=== PATIENT | female | born 1930 | race Caucasian/White ===

== ENCOUNTER 2017-01-29 16:16 | Inpatient (IN) | payer MEDICARE, BC ==
[~2017-01-29] VITALS: Ht 154.9 cm; Wt 60.8 kg
[2017-01-29] MEDS ORDERED: SOD CHLORIDE 0.9% 1,000 ML IV STA (16:58)
[2017-01-29] MEDS ORDERED: ONDANSETRON 4 MG INJ IV STA (16:58)
--- NOTE | 2017-01-29 17:33 | ERA ---
ER Documentation Chief Complaint Date/Time DATE: 01/29/17 TIME: 17:25 Chief Complaint ABDOMINAL 8/10 PAIN HPI 86-year-old woman brought in by EMS for lower abdominal pain and cramping 1 day , pain has been severe nonradiating and nonexertional. She was diagnosed with urinary tract infection about 2 days ago and has been using ciprofloxacin therapy for 2 days. She has had some loose stools, no vomiting, no chest pain or shortness of breath, no fevers or chills. Patient continues to have urinary frequency and dysuria. ROS All systems reviewed and are negative except as per history of present illness. Medications Home Meds Reported Medications Tuberculin,Purif.prot.deriv. (Tubersol) 5 Tub Unit/0.1 Ml Vial, 5 TUB ID QHS, VIAL 01/29/17 Spironolactone* (Aldactone*) 25 Mg Tablet, 25 MG GTB DAILY, #30 TAB 01/29/17 Protein Supplement (Promod) 946 Ml Liquid, 30 ML GTB DAILY 01/29/17 Ondansetron Hcl* (Ondansetron Hcl*) 4 Mg Tablet, 4 MG GTB Q6H, TAB 01/29/17 Hydrocodone/Acetaminophen ([place] 5-325 Tablet) 1 Each Tablet, 1 EACH GTB Q4H Y for PRN, TAB 01/29/17 Multivitamin with Minerals (Multivitamins with Minerals) 1 Each Tablet, 1 EACH GTB DAILY, TAB 01/29/17 Lisinopril* (Lisinopril*) 5 Mg Tablet, 5 MG GTB DAILY, #30 TAB HOLD IF SBP<110 OR HR<60 01/29/17 Furosemide* (Furosemide*) 40 Mg Tablet, 40 MG GTB DAILY, TAB HOLD IF SBP<110 01/29/17 Famotidine* (Famotidine*) 20 Mg Tablet, 20 MG GTB DAILY, #30 TAB 01/29/17 Apixaban* (Eliquis*) 5 Mg Tablet, 5 MG GTB BID, TAB 01/29/17 Ipratropium-Albuterol (Ipratropium-Albuterol) 0.5-3 Mg/3 Ml Ampul.neb, 3 ML INHALATION Q2H, #30 VIAL 01/29/17 Cefepime Hcl/Ivpb* (Cefepime- 1 Gm/50 Ml*) 1 Gm/50 Ml Piggyback, 1 GM IVPB Q12, EA 01/29/17 Carvedilol* (Carvedilol*) 12.5 Mg Tablet, 12.5 MG GTB BID, #60 TAB HOLD IF SBP<110 OR HR<60 01/29/17 Calcium Carbonate-Vitamin D3 (Calcium 500 + D Tablet) 1 Each Tablet, 1 TAB GTB DAILY, TAB 01/29/17 Ascorbic Acid (Vitamin C) 500 Mg Tab, 500 MG GTB DAILY, TAB 01/29/17 Acetaminophen* (Acetaminophen*) 650 Mg Tablet, 650 MG GTB Q4H Y for PAIN LEVEL 1 -310, #30 TAB FEVER>101.1F 01/29/17 Allergies Allergies: Coded Allergies: No Known Allergy (Unverified , 01/29/17) PMhx/Soc Acute respiratory failure with tracheostomy, diabetes mellitus, spinal stenosis , hypertension, atrial fibrillation, previous left lower extremity DVT, 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, 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, hyperlipidemia, previous gastrostomy, anemia Anesthesia Reaction: No Hx Neurological Disorder: No Hx Psychiatric Problems: No Hx Alcohol Use: No Hx Substance Use: No Hx Tobacco Use: No Smoking Status: Unknown if ever smoked FmHx Family History: No diabetes Physical Exam Vitals Vital Signs Date Time Temp Pulse Resp B/P Pulse Ox O2 Delivery O2 Flow Rate FiO2 01/29/17 16:45 98.4 87 20 123/53 100 Physical Exam GENERAL: Elderly, chronically debilitated woman, appears nontoxic, afebrile, tracheostomy in place HEENT: Tracheostomy in place, skin appears clean and dry around the tracheostomy no cervical spine tenderness or step-off deformities, no goiter, no jaundice NEURO: Alert and oriented 1, patient has difficulty speaking because of the tracheostomy, eyes open, pupils equal round reactive to light, bilateral lower extremity paresis, moving upper extremities without difficulty CARDIAC: Regular rate and rhythm, no murmurs rubs or gallops LUNGS: Clear bilaterally no wheezing crackles or stridor ABDOMEN: Soft soft abdomen, diffuse mild tenderness to the lower quadrants without rigidity or guarding SKIN: Warm and dry to touch, no abrasions, contusions, or hematomas, no lacerations, no ecchymosis, no target lesions, and without ulcers EXTREMITIES: No clubbing cyanosis or edema, calves are bilaterally symmetrical, no Homans sign, no popliteal cord sign. Distal pulses equal and bilateral PSYCH: Unable to assess Result Diagram: 01/29/17 1715 01/29/17 1715 Results 24 hrs Laboratory Tests Test 01/29/17 17:15 01/29/17 17:48 White Blood Count 13.510^3/ul Red Blood Count 3.1610^6/ul Hemoglobin 10.0g/dl Hematocrit 31.9% Mean Corpuscular Volume 100.9fl Mean Corpuscular Hemoglobin 31.6pg Mean Corpuscular Hemoglobin Concent 31.3g/dl Red Cell Distribution Width 15.9% Platelet Count 10170^3/UL Mean Platelet Volume 10.1fl Neutrophils % 69.0% Band Neutrophils % 7.0% Lymphocytes % 11.0% Monocytes % 13.0% Eosinophils % % Neutrophils # 9.310^3/ul Lymphocytes # 1.510^3/ul Monocytes # 1.810^3/ul Eosinophils # 10^3/ul Sodium Level 137mmol/L Potassium Level 4.2mmol/L Chloride Level 90mmol/L Carbon Dioxide Level 37mmol/L Anion Gap 14 Blood Urea Nitrogen 46mg/dl Creatinine 0.83mg/dl Glucose Level 113mg/dl Calcium Level 9.9mg/dl Total Bilirubin 0.1mg/dl Direct Bilirubin 0.00mg/dl Indirect Bilirubin 0.1mg/dl Aspartate Amino Transf (AST/SGOT) 27IU/L Alanine Aminotransferase (ALT/SGPT) 41IU/L Alkaline Phosphatase 89IU/L Troponin I 0.041ng/ml Total Protein 7.8g/dl Albumin 3.2g/dl Globulin 4.60g/dl Albumin/Globulin Ratio 0.69 Lipase 51U/L Urine Color LT. YELLOW Urine Clarity CLEAR Urine pH 6.0 Urine Specific [place] 1.010 Urine Ketones NEGATIVE Urine Nitrite NEGATIVE Urine Bilirubin NEGATIVE Urine Urobilinogen 0.2 E.U./dL Urine Leukocyte Esterase 1+ Urine Microscopic RBC NONE SEEN/HPF Urine Microscopic WBC 25-50/HPF Urine Squamous Epithelial Cells FEW Urine Bacteria MODERATE Urine Hemoglobin NEGATIVE Urine Glucose NEGATIVE% Urine Total Protein NEGATIVE Current Medications Medications (Trade) Dose Ordered Sig/Rojas Route PRN Reason Start Time Stop Time Status Last Admin Dose Admin Sodium Chloride (NS) 1,000 ml @ 1,000 mls/hr Q1H STAT IV 01/29/17 16:58 01/29/17 17:57 DC 01/29/17 17:51 Ondansetron HCl 4 mg 4 mg ONCE STAT IV 01/29/17 16:58 01/29/17 17:00 DC 01/29/17 17:52 Sodium Chloride (NS) 1,000 ml @ 1,000 mls/hr Q1H ONCE IV 01/29/17 18:30 01/29/17 19:29 Procedures/[facility] IV line was established patient was placed on snaker driving horses rhythm strip revealed a sinus rhythm at about 80 bpm with upright P and T waves. Patient was afebrile. EKG performed, read by me revealed a normal sinus rhythm at 85 bpm, left axis deviation, narrow QRS complex, no concerning ST elevations or depressions noted , Q waves in inferior leads consistent with previous CT. I administered 2 L normal saline intravenously for dehydration and Zofran 4 mg IV for nausea. CBC revealed a leukocytosis of 14, electrolytes revealed dehydration with a BUN/ creatinine of 46/0.8, liver function tests are normal, troponin was negative. Urinalysis reveals a UTI with elevated urine WBCs and leukocytes. I treated her here with ceftriaxone 1 g IV. One AP view of the chest performed, read by me reveals no acute infiltrates, normal mediastinum, sharp costophrenic and cardiac borders, no air under the diaphragm. Otherwise unremarkable chest x-ray. CT scan of the abdomen and pelvis is also been ordered results are pending I will follow-up. Patient will be admitted to telemetry setting for continued medical management and IV hydration, and antibiotic therapy. Departure Diagnosis: Primary Impression: Acute encephalopathy Additional Impressions: Dehydration UTI (urinary tract infection) Qualified Code: N30.00 - Acute cystitis without hematuria Tracheostomy care Condition: ERIK Guzmán MD January 29, 2017 17:32
[2017-01-29 17:34] LABS: ADD SCAN DIFF NO
[2017-01-29 17:36] LABS: HEMATOCRIT 31.9 % (37.0-47.0); MEAN CORPUSCULAR HEMOGLOBIN 31.6 pg (29.0-33.0); MEAN CORPUSCULAR HGB CONC 31.3 g/dl (32.0-37.0); MEAN CORPUSCULAR VOLUME 100.9 fl (82.0-101.0); MEAN PLATELET VOLUME 10.1 fl (7.4-10.4); PLATELET COUNT 308 10^3/UL (140-415); RED BLOOD COUNT 3.16 10^6/ul (4.20-5.40); RED CELL DISTRIBUTION WIDTH 15.9 % (11.5-14.5); WHITE BLOOD COUNT 13.5 10^3/ul (4.8-10.8)
[2017-01-29 17:49] LABS: ALBUMIN 3.2 g/dl (3.3-4.9)
[2017-01-29 17:50] LABS: POTASSIUM 4.2 mmol/L (3.5-5.1)
[2017-01-29 17:52] LABS: BILIRUBIN,INDIRECT 0.1 mg/dl (0-1.1); BILIRUBIN,TOTAL 0.1 mg/dl (0.2-1.3); CREATININE 0.83 mg/dl (0.44-1.00)
[2017-01-29] MEDS ORDERED: ASC500 GTB (17:52)
[2017-01-29] MEDS ORDERED: ACET-2047 GTB (17:52)
[2017-01-29 17:53] LABS: ALBUMIN/GLOBULIN RATIO 0.69; CALCIUM 9.9 mg/dl (8.4-10.2); TOTAL PROTEIN 7.8 g/dl (6.1-8.1)
[2017-01-29] MEDS ORDERED: CALC-84 GTB (17:54)
[2017-01-29] MEDS ORDERED: CARV12.579 GTB (17:55)
[2017-01-29] MEDS ORDERED: CEFE1PIG IVPB (17:56)
[2017-01-29] MEDS ORDERED: IPRA3AMP INHALATION (17:57)
[2017-01-29] MEDS ORDERED: APIX5TAB GTB (17:57)
[2017-01-29] MEDS ORDERED: FAMO20TA18 GTB (17:58)
[2017-01-29] MEDS ORDERED: FURO40TA4 GTB (17:59)
[2017-01-29] MEDS ORDERED: LISI-313 GTB (18:00)
[2017-01-29] MEDS ORDERED: MULT-105 GTB (18:01)
[2017-01-29] MEDS ORDERED: HYDR-906 GTB (18:02)
[2017-01-29] MEDS ORDERED: ONDA4TAB95 GTB (18:02)
--- NOTE | 2017-01-29 18:02 | RADRPT ---
PROCEDURE: XR Chest. CLINICAL INDICATION: Chest pain. Abdominal pain TECHNIQUE: Portable AP semi erect view of the chest was obtained. COMPARISON: 01/09/2017 FINDINGS: The cardiomediastinal silhouette is within normal limits. Tracheostomy is again noted unchanged in satisfactory position. Aeration of the left lower lobe has improved but left lower lobe subsegmenta l atelectasis persists. The right lung remains clear. There is no evidence for pleural effusion, p neumothorax or pulmonary vascular congestion. Demineralization is again noted. Metallic left proxi mal humeral prosthesis is again seen and normal in position. Postoperative fusion hardware of the v isualized lumbar spine is again identified. Calcification of the aorta is present. No free air seen below the diaphragm. RPTAT:HJJR IMPRESSION: 1. Improved aeration of the left lower lobe compared to 01/09/2017 with some residual left basilar subsegmental atelectasis or scarring. 2. Tracheostomy again noted in satisfactory position. 3. Aortic atherosclerosis is present. Physician Barb Date Time Electronically viewed and signed by Physician Barb on 01/29/2017 18:01 JR/
[2017-01-29 18:03] LABS: ADD UMIC YES; URINE BILIRUBIN (Dip) NEGATIVE (NEGATIVE); URINE BLOOD (Dip) NEGATIVE (NEGATIVE); URINE COLOR LT. YELLOW (YELLOW); URINE GLUCOSE (Dip) NEGATIVE (NEGATIVE); URINE KETONES (Dip) NEGATIVE (NEGATIVE); URINE LEUKOCYTE ESTERASE (Dip) 1+ (NEGATIVE); URINE NITRITE (Dip) NEGATIVE (NEGATIVE); URINE TOTAL PROTEIN (Dip) NEGATIVE (NEGATIVE); URINE UROBILINOGEN (Dip) 0.2 E.U./dL (0.1-1.0)
[2017-01-29] MEDS ORDERED: PROT946L GTB (18:03)
[2017-01-29 18:04] LABS: TROPONIN-I 0.041 ng/ml (0.00-0.12)
[2017-01-29] MEDS ORDERED: SPIR25TA GTB (18:04)
[2017-01-29] MEDS ORDERED: TUBE5VIA3 ID (18:05)
[2017-01-29 18:23] LABS: BACTERIA,URINE MODERATE; SQUAMOUS EPITHELIAL CELL,UR FEW; URINE RBCS NONE SEEN /HPF (0)
[2017-01-29 18:27] LABS: LYMPHOCYTES # 1.5 10^3/ul (0.8-2.9); MONOCYTE # 1.8 10^3/ul (0.3-0.9); NEUTROPHIL # 9.3 10^3/ul (1.6-7.5)
[2017-01-29] MEDS ORDERED: SOD CHLORIDE 0.9% 1,000 ML IV ONE (18:30)
[2017-01-29] MEDS ORDERED: CEFTRIAXONE 1 GM/50 ML (PMX) 50 ML IVPB ONE (19:00)
--- NOTE | 2017-01-29 19:36 | RADRPT ---
PROCEDURE: CT abdomen and pelvis without contrast. Site of service: emergency room. CLINICAL INDICATION: Periumbilical abdominal pain TECHNIQUE: CT scan of the abdomen and pelvis without contrast was performed on the CT scanner. Th e patient was scanned without intravenous contrast. Oral contrast was administered. 3-D post proce ssing coronal and sagittal re-formations were obtained from the axial source images. Exam D L P [address] D V O L 23 mgy. This exam is limited due to lack of intravenous contrast. One or more of the following dose reduction techniques were used: Automated exposure control Adjustment of the mA and/or kV according to patient size. Use of iterative reconstruction technique. COMPARISON: None FINDINGS: CT abdomen: The lung bases are clear. The heart size is normal, without pericardial thickening or effusion. The liver is normal in size and density without focal mass or intrahepatic biliary dilatation. The spleen is normal in size and homogeneous in density. The stomach is partially collapsed, but is peggy ssly unremarkable. A gastrostomy tube is present. The pancreas as visualized is normal. The gallbla dder and biliary tree are unremarkable and there is no evidence for biliary dilatation. The adrenal glands are symmetric and normal. The kidneys are symmetrically unremarkable as well. N o renal calculus or obstructive uropathy or suspicious, mass lesion is seen. The aorta is of normal caliber. There is no retroperitoneal lymphadenopathy. The allie hepatis vidal on is clear. The bowel and mesentery, as visualized, are equally unremarkable. CT pelvis: The small bowel loops situated within the pelvis are unremarkable. The appendix is not visualized. Involving the sigmoid colon diffusely, there is moderate, circumferential bowel wall thickening with inflammatory changes suggesting acute, moderate, uncomplicated diverticulitis. No free air, free f luid, abscess or findings of bowel obstruction. Underlying neoplasm is not completely excluded. GI follow-up is suggested. The pelvic organs are normal. The pelvic sidewalls and inguinal regions are clear. Fusion hardware is present within the lumbar spine, as well as bilateral hip arthroplasties. No ost eolytic or osteoblastic lesion is detected. IMPRESSION: 1. Diffuse, moderate, bowel wall thickening of the sigmoid colon suggesting uncomplicated, moderate diverticulitis. Underlying neoplasm is not excluded; GI follow-up is suggested. No findings of fr ee air, free fluid, abscess, bowel obstruction, or acute perforation. 2. G tube in place. Status post lumbar fusion with bilateral hip arthroplasties. RPTAT: QQ .Imelda Jules MD, Date Time Electronically viewed and signed by .Imelda Jules MD, on 01/29/2017 19:36 .F/
[2017-01-29] MEDS ORDERED: metroNIDAZOLE 500 MG/NS (PMX) 100 ML IVPB ONE (20:00)
[2017-01-29] MEDS ORDERED: NACL 0.9% 3 ML SYG IV SCH (20:30)
[2017-01-29] MEDS: FAMOTIDINE 20 MG INJ IV SCH (21:19)
[2017-01-29 22:30] VITALS: TEMP 97.4
[2017-01-30] VITALS (15 sets, daily range): BP systolic 102–161; BP diastolic 43–66; PULSE 74–80; RESP 16–28; Ht 154.9 cm; Wt 60.8 kg
[2017-01-30 05:40] LABS: ADD SCAN DIFF NO
[2017-01-30 05:41] LABS: BASOPHILS % 0.2 % (0.0-2.0); HEMATOCRIT 29.7 % (37.0-47.0); HEMOGLOBIN 9.3 g/dl (12.0-16.0); LYMPHOCYTES # 1.5 10^3/ul (0.8-2.9); LYMPHOCYTES % 12.6 % (15.0-51.0); MEAN CORPUSCULAR HEMOGLOBIN 31.8 pg (29.0-33.0); MEAN CORPUSCULAR HGB CONC 31.3 g/dl (32.0-37.0); MEAN CORPUSCULAR VOLUME 101.7 fl (82.0-101.0); MONOCYTE # 1.2 10^3/ul (0.3-0.9); NEUTROPHIL # 9.1 10^3/ul (1.6-7.5); NEUTROPHILS % 76.8 % (39.0-77.0); PLATELET COUNT 282 10^3/UL (140-415); RED BLOOD COUNT 2.92 10^6/ul (4.20-5.40); RED CELL DISTRIBUTION WIDTH 15.9 % (11.5-14.5); WHITE BLOOD COUNT 11.8 10^3/ul (4.8-10.8)
[2017-01-30 06:08] LABS: ALBUMIN 2.9 g/dl (3.3-4.9); ALBUMIN/GLOBULIN RATIO 0.74; CALCIUM 9.4 mg/dl (8.4-10.2); CREATININE 0.7 mg/dl (0.44-1.00); POTASSIUM 4.5 mmol/L (3.5-5.1); TOTAL PROTEIN 6.8 g/dl (6.1-8.1)
[2017-01-30] MEDS: ALBUTEROL/IPRATROPIUM (NEB) 3 ML AMP HHN PRN ×3 (08:15→23:51)
[2017-01-30] MEDS: FAMOTIDINE 20 MG INJ IV SCH (08:51)
[2017-01-30] MEDS: CEFTRIAXONE 1 GM/50 ML (PMX) 50 ML IVPB SCH (08:51)
[2017-01-30] MEDS: ENOXAPARIN 30 MG/0.3 ML SYG SC SCH (09:22)
[2017-01-30] MEDS: ACETAMINOPHEN 325 MG TAB PO PRN (11:50)
[2017-01-30] MEDS: metroNIDAZOLE 500 MG/NS (PMX) 100 ML IVPB SCH ×2 (15:10→21:14)
--- NOTE | 2017-01-30 16:13 | HP ---
DATE OF ADMISSION: 01/29/2017 CHIEF COMPLAINT: Abdominal pain 04/27. HISTORY OF PRESENT ILLNESS: The patient is an 86-year-old female with history of acute respiratory failure with tracheostomy, diabetes mellitus, spinal stenosis, hypertension, atrial fibrillation, h istory of left lower extremity deep venous thrombosis and history of Guillian-Wheelwright, hyperlipidemia, and dysphagia with gastrostomy and anemia. The patient was recuperating at [facility]. The patient developed abdominal pain and cramping for 1 day. The patient was diagnosed with uri nary tract infection a couple of days ago and was given ciprofloxacin. The patient also developed d iarrhea. Patient denies any nausea, vomiting. Patient underwent a CT of the abdomen and pelvis in the emergency room which revealed diffuse moderate bowel wall thickening of the sigmoid colon, sugge stive of uncomplicated moderate diverticulitis underlying neoplasm is not excluded. GI followup is s uggested. No findings of free air, free fluid, abscess, bowel obstruction, acute perforation. G-tu be is placed, status post lumbar fusion with bilateral hip arthroplasties. The patient's urinalysis was positive for leukocyte esterase and the patient was also noted to have leukocytosis with white blood cells being elevated to 13,500. The patient was diagnosed with acute urinary tract infection, was started on broad spectrum antibiotics after urine culture was collected and given IV fluids and patient was admitted for further evaluation and management. PAST MEDICAL HISTORY: Per HPI. The patient is not able to provide any medical history. Most of th e medical history was obtained from talking to patient's daughter and from medical records. PAST SURGICAL HISTORY: Patient is status post lumbar surgery, bilateral hip arthroplasty and recent right lower extremity surgery, status post tracheostomy and status post G-tube placement. FAMILY HISTORY: Noncontributory. SOCIAL HISTORY: [facility]. Denies any tobacco use, denie s any alcohol use, denies any illicit drug use. ALLERGIES: NO KNOWN ALLERGIES. MEDICATIONS ON ADMISSION: 1. Tubersol. 2. Aldactone. 3. ProMod. 4. Zofran. 5. Randolph. 6. Multivitamins 7. Lisinopril. 8. Lasix. 9. Pepcid. 10. Eliquis. 11. DuoNeb. 12. Coreg. 13. Vitamin D with calcium carbonate. 14. Vitamin C. 15. Tylenol. 16. Cefepime. REVIEW OF SYSTEMS: A 12-point review of systems is negative unless what mentioned in the HPI. PHYSICAL ASSESSMENT: GENERAL: Well-developed, well-nourished female currently is awake, alert to name, nonverbal. VITAL SIGNS: Temperature is 98.4, pulse 77, blood pressure is 120/50, respiratory rate is 24, oxyge n saturation 99% on cool aerosol mist through a trach collar. HEENT: Head is atraumatic, normocephalic. Pupils equal and reactive to light and accommodation. O ral mucosa is pink and moist. NECK: Supple. There is a tracheostomy at the base of the neck with no bleeding. LUNGS: Slightly diminished at the bases. There is no rhonchi, wheezes, rales noted. CARDIOVASCULAR: Normal S1, S2. No murmurs, gallops, clicks, rubs noted. ABDOMEN: Round, soft, nondistended. The patient has mild tenderness at the lower quadrants. G-tub e with intact stoma. Bowel sounds hypoactive. EXTREMITIES: No edema, clubbing, cyanosis. SKIN: There is no rash, petechiae noted. PSYCHOLOGICAL: The patient is awake, alert, nonverbal. The patient is bedridden. ASSESSMENT AND PLAN: 1. Urinary tract infection. Continue broad spectrum antibiotics. Follow up on final cultures. 2. Abdominal pain. I am going to ask Dr. Shelby to evaluate the patient in gastroenterology [facility]. 3. Moderate diverticulitis per CT. Continue antibiotics and IV fluids. 4. 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 5. Hypertension. 6. History of atrial fibrillation and left lower extremity deep venous thrombosis. Continue Eliqui s. 7. Dysphagia with G-tube. 8. History of acute respiratory failure with tracheostomy. 9. History of Guillian-Wheelwright. 10. Status post right lower extremity ortho surgery details are not available. Resume patient's home medications. We will obtain lactic acid and blood culture. Continue Protonix for peptic ulcer disease prophylaxis. Further recommendations based on clinical course. Plan of c are discussed with Dr. Murillo. Dictated By: IGNACIO ARROYO INTEGRATION ENGINEER for GUERO MURILLO MD SR/NTS Conf#: [id number] [facility]#: [id number]
[2017-01-30] MEDS ORDERED: VANCOMYCIN IV PER PHARMACY XX SCH (16:30)
[2017-01-30] MEDS ORDERED: VANCOMYCIN 1.25 GM in SOD CHLORIDE 0.9% 250 ML IVPB SCH (18:00)
--- NOTE | 2017-01-30 21:11 | CONS ---
DATE OF ADMISSION: 01/29/2017 DATE OF CONSULTATION: 01/30/2017 TYPE OF CONSULTATION: Infectious Disease. REASON FOR CONSULTATION: Antibiotic management. HISTORY OF PRESENT ILLNESS: Darshana Nicholson is an 86-year-old unfortunate female who was brought in by EMS for lower abdominal pain and cramping. The patient was diagnosed with urinary tract infecti on about 2 days prior to her admission on the and was placed on ciprofloxacin for 2 days. She has had some loose stools, no vomiting, but has urinary frequency and dysuria. Her past problems include: 1. COPD with acute respiratory failure, status post tracheostomy. 2. Dysphagia with previous gastrostomy tube. 3. Adult-onset diabetes mellitus. 4. Spinal stenosis. 5. Hypertension. 6. Atrial fibrillation. 7. Previous left lower extremity DVT. 8. 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 9. Hyperlipidemia. 10. Anemia of chronic disease. On admission, her white count was 13.5, H and H of 10 and 31.9, platelet count of 308,000. BUN and creatinine 46 over 0.83. PAST MEDICAL HISTORY: Operations as outlined. FAMILY HISTORY: Noncontributory. SOCIAL HISTORY: She does not smoke, drink or abuse drugs. ALLERGIES: NONE TO PENICILLIN, SULFA OR FOODS. MEDICATIONS: Per chart. REVIEW OF SYSTEMS: As per HPI. PHYSICAL EXAMINATION: GENERAL: The patient is an elderly, chronically debilitated female who is afebrile, in no acute dis tress. SKIN: Without generalized rash. HEENT: She has a tracheostomy in place which is clean and dry. Otherwise within normal limits. LYMPH NODES: None palpable. CHEST: Decreased breath sounds at the bases. HEART: Without murmur or gallop. ABDOMEN: Soft, nontender without organosplenomegaly or masses. EXTREMITIES: Without cyanosis, clubbing or edema. RECTAL AND GENITAL: Deferred. NEUROLOGIC: The patient has difficulty speaking secondary to tracheostomy. She has bilateral lower extremity paresis. She moves her upper extremities. As noted, her white count was 13.5. Chest x-ray shows improved aeration of the left lobe compared t o 01/09/2017, tracheostomy in place. A CT scan of the abdomen and pelvis was done which showed diff use moderate bowel wall thickening of the sigmoid colon suggesting uncomplicated moderate diverticul itis. Underlying neoplasm is not excluded. GI followup suggested. No findings of free air, free f luid, abscess, bowel obstruction or acute perforation. A G-tube is in place. Status post lumbar fu ashley with bilateral hip arthroplasties. The patient has gram-positive rods in her blood which are m ost likely contaminant corynebacterium. She has enterococcus in her urine. She had blood cultures done. She was started on ceftriaxone and metronidazole. The patient has gram-positive rods in her blood which are probably contaminant. I am going to repeat 2 sets of blood cultures. I'm going to get a C. difficile, discontinue the ceftriaxone which does not work on enterococcus, start her on va ncomycin per pharmacy. I will dictate my findings to the hospitalists. Dictated By: IZABEL OCONNELL MD, JD/EAN Conf#: [id number] DID#: [id number]
[2017-01-31] VITALS (13 sets, daily range): BP systolic 115–142; BP diastolic 56–65; PULSE 74–90; RESP 16–18
[2017-01-31] MEDS: metroNIDAZOLE 500 MG/NS (PMX) 100 ML IVPB SCH ×3 (06:00→22:17)
[2017-01-31] MEDS: CEFTRIAXONE 1 GM/50 ML (PMX) 50 ML IVPB SCH (08:22)
[2017-01-31] MEDS: FAMOTIDINE 20 MG INJ IV SCH (08:22)
[2017-01-31] MEDS: ENOXAPARIN 30 MG/0.3 ML SYG SC SCH (08:38)
--- NOTE | 2017-01-31 12:39 | CONS ---
Date/Time of Note Date/Time of Note DATE: 01/31/17 TIME: 12:39 Consultation Date/Type/Reason Admit Date/Time January 29, 2017 at 18:29 Date of Consultation: January 31, 2017 Type of Consultation: Pulmonary Reason for Consultation Consultation dictated number is [id number] Social History Smoking Status: Never smoker Exam/Review of Systems Vital Signs Vitals Vital Signs Date Time Temp Pulse Resp B/P Pulse Ox O2 Delivery O2 Flow Rate FiO2 01/31/17 11:15 98.2 74 18 142/65 96 01/31/17 09:40 Aerosol 5.0 28 Aerosol Mask T Tube Intake and Output 01/30/17 01/30/17 01/31/17 15:00 23:00 07:00 Intake Total 0 ml Balance 0 ml Results Result Diagram: 01/30/1751001/30/17516 Medications Medications Current Medications Acetaminophen (Tylenol Tab) 650 mg Q6H PRN PO PAIN LEVEL 1-3 OR FEVER Last administered on 01/30/17 11:50; Admin Dose 650 MG; Start 01/29/17 at 20:30 Morphine Sulfate (morphine) 2 mg Q4H PRN IV PAIN LEVEL 7-10; Start 01/29/17 at 20:30 Famotidine (Pepcid Iv) 20 mg DAILY IV Last administered on 01/31/17 08:22; Admin Dose 20 MG; Start 01/29/17 at 21:00 Enoxaparin Sodium 30 mg 30 mg DAILY SC Last administered on 01/31/17 08:38; Admin Dose 30 MG; Start 01/30/17 at 09:00 Ceftriaxone Sodium 50 ml @ 100 mls/hr DAILY IVPB Last administered on 08:22; Admin Dose 100 MLS/HR; Start 01/30/17 at 09:00 Metronidazole 100 ml @ 100 mls/hr Q8 IVPB Last administered on 01/31/17 06:00 ; Admin Dose 100 MLS/HR; Start 01/30/17 at 14:00 Linezolid 300 ml @ 300 mls/hr Q12 IVPB ; Start 01/31/17 at 21:00 Sodium Chloride (1/2 NS) 1,000 ml @ 60 mls/hr [id number] IV ; Start 01/31/17 at 12 :30 CHACE CARR January 31, 2017 12:39
[2017-01-31] MEDS: SOD CHLORIDE 0.45% 1,000 ML IV SCH (13:01)
--- NOTE | 2017-01-31 13:04 | CONS ---
DATE OF ADMISSION: 01/29/2017 DATE OF CONSULTATION: 01/31/2017 TYPE OF CONSULTATION: Pulmonary consult REFERRING PHYSICIAN: Dr. Murillo REASON FOR REFERRAL: For evaluation of chronic respiratory failure. HISTORY OF PRESENT ILLNESS: Ms. Nicholson is a very pleasant 86-year-old white lady who was admitted on January 29, transferred from group home with complaints of diarrhea as well as abdominal pain. The patient has been diagnosed with diverticulitis. The patient also has been maintained on tracheal T-piece and pulmonary consultation was requested for further evaluation. By the time I saw the patient, the patient is completely awake, alert, denies any shortness of breath, chest pain, wheezing, cough or sputum production, any fever or chills, but does complain of diarrhea which according to her is improving and is complaining of abdominal pain for the last few days. PAST MEDICAL HISTORY: 1. Significant for chronic respiratory failure. The patient, however, has been weaned down to T-piece. 2. History of Guillain-[place] syndrome. 3. Hyperlipidemia. 4. Status post G-tube placement. 5. History of lumbar spinal fusion as well as bilateral hip arthroplasty. The patient also has a shoulder surgery as well. OUTPATIENT MEDICATIONS: 1. Aldactone. 2. Zofran. 3. [place]. 4. Lisinopril. 5. Lasix. 6. Eliquis. 7. DuoNeb. 8. Coreg. 9. Cefepime. In hospital, the patient is gettin. Rocephin 1 gram IV daily. 2. Flagyl 500 mg IV q. 8 hours. 3. Zyvox 600 mg q.12h. 4. DuoNeb q.6h. p.r.n. 5. Lovenox 30 mg a day. 6. Pepcid 20 mg IV daily. 7. Morphine on a p.r.n. basis. ALLERGIES: NONE. SOCIAL HISTORY: Patient never smoked. No history of alcohol or drug abuse. FAMILY HISTORY: The patient has a very supportive family. OCCUPATIONAL HISTORY: The patient is currently on disability. REVIEW OF SYSTEMS: Denies any headache, seizures, visual changes, sinus symptoms, postnasal drip, dysphagia, odynophagia, chest pain, angina. Complains of mild diarrhea as well as abdominal pain. Denies any lower GI bleed , any urinary symptoms, any edema. Complains of mild chronic orthopnea. Has a fair appetite. The patient is on tube feedings. PHYSICAL EXAMINATION: GENERAL: Elderly awake, alert, currently in no distress. VITAL SIGNS: Temperature is 98.2 degrees Fahrenheit, heart rate 74 per minute, blood pressure is 142/65, O2 sat is 95% on tracheal T-piece. HEENT: Supple. NECK: No JVD, no lymphadenopathy, midline trachea, no thyromegaly. Pharynx clear, no neck bruits. Pupils are small bilaterally. There is a tracheostomy in place with clean insertion site. Patient has fair dentition. LUNGS: Clear to auscultation. HEART: S1, S2 audible, no murmurs, regular rhythm. ABDOMEN: Soft. G-tube in place. There is a well-healed laparotomy scar. There is left lower quadrant tenderness. EXTREMITIES: No peripheral edema. Pulses 1+ bilaterally. NEUROLOGIC: Patient is awake, alert, has intact cranial nerves. Follows commands and moves all 4 extremities on command. Chest x-ray was reviewed from January 29, which is totally clear. Urinalysis done on the January 29 is positive for UTI. LABORATORIES: Labs from yesterday, sodium 137, potassium 4.5, chloride 101, bicarbonate 32, glucose 110, creatinine 0.7, BUN 35. Liver enzymes are normal. White count from yesterday is 11.8, hemoglobin is 9.3, platelet count of 282. Urine culture is growing vancomycin-resistant Enterococcus. Blood cultures are positive for bacterial species. ASSESSMENT: 1. Patient admitted for abdominal pain, likely from diverticulitis, currently on appropriate antibiotic regimen. 2. Gram-negative bacteremia. 3. Chronic respiratory failure. The patient doing very well on T-piece. 4. History of Guillain-[place] syndrome. RECOMMENDATIONS: Continue current treatment. The patient will need to have GI evaluation done. May need surgical evaluation as well. Dictated By: CHACE BOLAND/EAN Conf#: [id number] DID#: [id number] MTDD
--- NOTE | 2017-01-31 13:46 | CONS ---
DATE OF ADMISSION: 01/29/2017 DATE OF CONSULTATION: TYPE OF CONSULTATION: Gastroenterology. Dear Dr. Murillo: Thank you for asking me to see Mrs. Nicholson in GI consultation.. HISTORY OF PRESENT ILLNESS: As you know, the patient is an 86-year-old white female, is admitted to the [facility]. She is alert. She has got a tracheo stomy. She cannot communicate because of the tracheostomy. A CAT scan of the abdomen showed eviden ce of diverticulitis. She also has a G-tube in place. The patient has no history of vomiting, no history of GI bleeding, no diarrhea. She has multiple ot her medical problems including chronic COPD. She has a tracheostomy. Other review of system includ es diabetes, spinal stenosis, hypertension, atrial fibrillation, DVT of the left lower extremity, hi story of Guillain-[place], dyslipidemia. Dysphagia and because of that she has a PEG tube at this [facility]. Abdominal pain has been noted on her in the past 24 to 48 hours. MEDICATIONS PRIOR TO THE ADMISSION INCLUDE: 1. . 2. Aldactone. 3. ProMod. 4. Zofran. 5. [place]. 6. Multivitamins. 7. Lisinopril. 8. Lasix 9. Pepcid. 10. Eliquis. 11. DuoNeb. 12. Coreg. 13. Vitamins. 14. Cefepime. PAST SURGICAL HISTORY: Includes tracheostomy and percutaneous endoscopic gastrostomy tube placement . She also had bilateral hip arthroplasty and spine surgery for spinal stenosis. PHYSICAL EXAMINATION: GENERAL: The patient is an 86-year-old white female who at this time she is quite alert, but she ca nnot communicate because of tracheostomy. VITAL SIGNS: The blood pressure is 142/65, pulse is 74, temperature 98.2. CARDIOVASCULAR: Normal heart sounds. RESPIRATORY: Normal breath sounds. No rales, no wheezing heard. ABDOMEN: Showed evidence of G-tube in place, but G-tube site looks clean, is not infected. There i s tenderness in the left lower quadrant area, but no palpable masses. LABORATORY WORKUP: WBC count was 11,800 yesterday, hemoglobin 9.3. The platelet count is 282,000. Potassium 4.5, BUN is 35. Bilirubin 0.0, AST 27, ALT 45, lipase is 51. CAT scan of the abdomen, as mentioned earlier on, shows diverticulitis of the sigmoid colon. PEG in place. CLINICAL IMPRESSION: 1. Diverticulitis. She is on multiple medications including linezolid, vancomycin, discontinued me tronidazole, ceftriaxone. 2. Status post percutaneous endoscopic gastrostomy tube placement. 3. History of respiratory failure. 4. Diabetes. 5. Spinal stenosis. 6. Deep venous thrombosis left lower extremity. RECOMMENDATION: At this time, continue present management. I would cut down the G-tube feeding to 40 mL an hour. Once again, I would like to thank you for this consultation. Dictated By: TROY AKBAR MD NC/NTS Conf#: [id number] DID#: [id number] CC: GUERO MURILLO MD; TROY AKBAR MD;*EndCC*
--- NOTE | 2017-01-31 13:48 | CONS ---
Date/Time of Note Date/Time of Note DATE: 01/31/17 TIME: 13:47 Assessment/Plan Assessment/Plan Chief Complaint/Hosp Course Pt has oral thrush, will add Diflucan and oral Nystatin Problems: Consultation Date/Type/Reason Admit Date/Time January 29, 2017 at 18:29 Initial Consult Date 01/31/17 Type of Consultation: ID Exam/Review of Systems Vital Signs Vitals Vital Signs Date Time Temp Pulse Resp B/P Pulse Ox O2 Delivery O2 Flow Rate FiO2 01/31/17 12:43 74 01/31/17 11:15 98.2 18 142/65 96 01/31/17 09:40 Aerosol 5.0 28 Aerosol Mask T Tube Intake and Output 01/30/17 01/30/17 01/31/17 15:00 23:00 07:00 Intake Total 0 ml Balance 0 ml Results Result Diagram: 01/30/17 0511 01/30/17516 Medications Medications Current Medications Acetaminophen (Tylenol Tab) 650 mg Q6H PRN PO PAIN LEVEL 1-3 OR FEVER Last administered on 01/30/17 11:50; Admin Dose 650 MG; Start 01/29/17 at 20:30 Morphine Sulfate (morphine) 2 mg Q4H PRN IV PAIN LEVEL 7-10; Start 01/29/17 at 20:30 Famotidine (Pepcid Iv) 20 mg DAILY IV Last administered on 01/31/17 08:22; Admin Dose 20 MG; Start 01/29/17 at 21:00 Enoxaparin Sodium 30 mg 30 mg DAILY SC Last administered on 01/31/17 08:38; Admin Dose 30 MG; Start 01/30/17 at 09:00 Ceftriaxone Sodium 50 ml @ 100 mls/hr DAILY IVPB Last administered on 08:22; Admin Dose 100 MLS/HR; Start 01/30/17 at 09:00 Metronidazole 100 ml @ 100 mls/hr Q8 IVPB Last administered on 01/31/17 13:39 ; Admin Dose 100 MLS/HR; Start 01/30/17 at 14:00 Linezolid 300 ml @ 300 mls/hr Q12 IVPB ; Start 01/31/17 at 21:00 Sodium Chloride (1/2 NS) 1,000 ml @ 60 mls/hr [id number] IV Last administered on 01/31/17t 13:01; Admin Dose 60 MLS/HR; Start 01/31/17 at 12:30 KRISHNA PINTO NP January 31, 2017 13:48
--- NOTE | 2017-01-31 14:04 | PN ---
DATE: 01/31/2017 SUBJECTIVE: No acute changes. The patient is awake, communicative, in no distress, complaining of lower abdominal pain. No fevers. No labs this morning. MICROBIOLOGY: Blood culture growing bacillus species. Urine culture grew VRE. ANTIMICROBIALS: The patient is on: 1. Zyvox. 2. Flagyl. 3. Rocephin. INDWELLINGS: Trach, PEG. DIAGNOSTICS: CT of the abdomen and pelvis on admission revealed uncomplicated moderate diverticulitis, underlying neoplasm is not excluded. Chest x-ray revealed improved aeration of the lower lobe compared to 01/09/2017. PHYSICAL EXAMINATION: GENERAL: This is a chronically ill-appearing, well-developed, elderly woman, who is awake, communicative in no distress. HEENT: Head atraumatic, normocephalic. Sclerae anicteric. Buccal mucosa dry. NECK: Supple. Tracheostomy present. CHEST: Rise symmetrical. Breath sounds diminished to bases. HEART: S1, S2. ABDOMEN: Soft, bowel sounds present. EXTREMITIES: Without cyanosis. ASSESSMENT: 1. Acute abdominal pain secondary to diverticulitis and urinary tract infection. 2. Bacillus species bacteremia consistent with contaminant. 3. Vancomycin-resistant enterococcus urinary tract infection. 4. Chronic respiratory failure. 5. History of Guillain-[place] syndrome. 6. History of spinal fusion. 7. Diabetes. 8. Atrial fibrillation. PLAN: The patient is on appropriate antimicrobials. Pulmonary on case. We are going to repeat blood cultures. Consider GI evaluation. Continue on current antibiotics. Dictated By: KRISHNA PINTO DIRECTOR WRITING for IZABEL BURRIS/EAN Conf#: [id number] DID#: [id number] TANVIR
--- NOTE | 2017-01-31 16:49 | PN ---
Date/Time of Note Date/Time of Note DATE: 01/31/17 TIME: 16:43 Assessment/Plan VTE Prophylaxis VTE Prophylaxis Intervention: SCD's Lines/Catheters IV [facility] Type [facility]from [facility] [place] Urinary Cath still in place: No Assessment/Plan Chief Complaint/Hosp Course ASSESSMENT AND PLAN: 1. VRE urinary tract infection. Continue Zyvox. Dr. Gibson is following an infection disease consultation. 2. Abdominal pain most likely secondary to diverticulitis and urinary tract infection. Dr. Shelby is following in gastroenterology consultation. 3. Moderate diverticulitis per CT. Continue antibiotics and IV fluids. 4. Chronic diastolic dysfunction congestive heart failure with preserved ejection fraction of 65. 5. Hypertension. 6. History of atrial fibrillation and left lower extremity deep venous thrombosis. Continue Eliquis. 7. Dysphagia with G-tube. 8. History of acute respiratory failure with tracheostomy. Dr. Araujo is following in pulmonology consultation 9. History of Guillian-[place]. 10. History of her proximal right tibia fracture, status post surgery with plate and screws. Dr. Jimenez is asked to see patient in orthopedic surgery consultation. Continue Protonix for peptic ulcer disease prophylaxis. Further recommendations based on clinical course. Plan of care discussed with Dr. Murillo. Problems: Subjective 24 Hr Interval Summary Free Text/Dictation Patient is awake alert comfortable in T-piece. Exam/Review of Systems Vital Signs Vitals Vital Signs Date Time Temp Pulse Resp B/P Pulse Ox O2 Delivery O2 Flow Rate FiO2 01/31/17 16:16 77 01/31/17 15:19 98.1 18 118/57 95 01/31/17 13:22 Aerosol 5.0 28 T Tube Intake and Output 01/30/17 01/30/17 01/31/17 15:00 23:00 07:00 Intake Total 0 ml Balance 0 ml Exam GENERAL: Well-developed, well-nourished female currently is awake, alert to name, nonverbal. HEENT: Head is atraumatic, normocephalic. Pupils equal and reactive to light and accommodation. Oral mucosa is pink and moist. NECK: Supple. There is a tracheostomy at the base of the neck with no bleeding. LUNGS: Slightly diminished at the bases. There is no rhonchi, wheezes, rales noted. CARDIOVASCULAR: Normal S1, S2. No murmurs, gallops, clicks, rubs noted. ABDOMEN: Round, soft, nondistended. The patient has mild tenderness at the lower quadrants. G-tube with intact stoma. Bowel sounds hypoactive. EXTREMITIES: No edema, clubbing, cyanosis. SKIN: There is no rash, petechiae noted. PSYCHOLOGICAL: The patient is awake, alert, nonverbal. The patient is bedridden. Results Result Diagram: 01/30/1751001/30/17516 Medications Medications Current Medications Acetaminophen (Tylenol Tab) 650 mg Q6H PRN PO PAIN LEVEL 1-3 OR FEVER Last administered on 01/30/17 11:50; Admin Dose 650 MG; Start 01/29/17 at 20:30 Morphine Sulfate (morphine) 2 mg Q4H PRN IV PAIN LEVEL 7-10; Start 01/29/17 at 20:30 Famotidine (Pepcid Iv) 20 mg DAILY IV Last administered on 01/31/17 08:22; Admin Dose 20 MG; Start 01/29/17 at 21:00 Enoxaparin Sodium 30 mg 30 mg DAILY SC Last administered on 01/31/17 08:38; Admin Dose 30 MG; Start 01/30/17 at 09:00 Ceftriaxone Sodium 50 ml @ 100 mls/hr DAILY IVPB Last administered on 08:22; Admin Dose 100 MLS/HR; Start 01/30/17 at 09:00 Metronidazole 100 ml @ 100 mls/hr Q8 IVPB Last administered on 01/31/17 13:39 ; Admin Dose 100 MLS/HR; Start 01/30/17 at 14:00 Linezolid 300 ml @ 300 mls/hr Q12 IVPB ; Start 01/31/17 at 21:00 Sodium Chloride (1/2 NS) 1,000 ml @ 60 mls/hr [id number] IV Last administered on 01/31/17 13:01; Admin Dose 60 MLS/HR; Start 01/31/17 at 12:30 Fluconazole (Diflucan) 100 mg DAILY GTB ; Start 01/31/17 at 14:00 Nystatin (Nystatin Susp) 5 ml QID PO ; Start 01/31/17 at 17:00 IGNACIO ARROYO January 31, 2017 16:49
[2017-01-31] MEDS: NYSTATIN SUSP 5 ML CUP PO SCH ×2 (16:51→20:55)
[2017-01-31] MEDS: FLUCONAZOLE 100 MG TAB GTB SCH (16:51)
[2017-01-31] MEDS: ACETAMINOPHEN 325 MG TAB PO PRN ×2 (17:14→21:28)
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
[2017-01-31] MEDS ORDERED: VANCOMYCIN 1 GM in NS 250 ML IVPB SCH (18:00)
[2017-01-31] MEDS: LINEZOLID 600 MG/D5W (PMX) 300 ML IVPB SCH (20:55)
[2017-02-01] VITALS (11 sets, daily range): BP systolic 108–141; BP diastolic 53–98; PULSE 78–84; RESP 18
[2017-02-01] MEDS: morphine 2 MG INJ IV PRN ×2 (00:59→10:20)
[2017-02-01] MEDS: metroNIDAZOLE 500 MG/NS (PMX) 100 ML IVPB SCH ×3 (05:44→22:59)
[2017-02-01 07:33] LABS: ADD SCAN DIFF NO
[2017-02-01 07:36] LABS: HEMATOCRIT 30.7 % (37.0-47.0); HEMOGLOBIN 9.7 g/dl (12.0-16.0); MEAN CORPUSCULAR HEMOGLOBIN 31.9 pg (29.0-33.0); MEAN CORPUSCULAR HGB CONC 31.6 g/dl (32.0-37.0); MEAN PLATELET VOLUME 10.2 fl (7.4-10.4); PLATELET COUNT 321 10^3/UL (140-415); RED BLOOD COUNT 3.04 10^6/ul (4.20-5.40); RED CELL DISTRIBUTION WIDTH 15.4 % (11.5-14.5); WHITE BLOOD COUNT 15.5 10^3/ul (4.8-10.8)
[2017-02-01 08:06] LABS: CALCIUM 8.8 mg/dl (8.4-10.2); CREATININE 0.57 mg/dl (0.44-1.00); POTASSIUM 3.7 mmol/L (3.5-5.1)
--- NOTE | 2017-02-01 08:30 | RADRPT ---
PROCEDURE: CR Right Knee CLINICAL INDICATION: Postop TECHNIQUE: An AP and lateral view were submitted. COMPARISON: 12/23/2016 FINDINGS: Osseous Structures: There is been stable positioning alignment of the internally fixed intra-articul ar fracture fragments involving the lateral tibial plateau. Methylmethacrylate is again seen to ext end into the lateral proximal tibial metaphysis. The osseous elements again appear osteoporotic. Join Spaces: The joint spaces are well maintained. No joint effusion is identified. Soft Tissues: The soft tissues appear unremarkable. IMPRESSION: No significant interval change with regards to internally fixed intra-articular fracture involving the right lateral tibial plateau. Physician Lupis Date Time Electronically viewed and signed by Physician Lupis on 02/01/2017 08:29 /
[2017-02-01] MEDS: CEFTRIAXONE 1 GM/50 ML (PMX) 50 ML IVPB SCH (09:19)
[2017-02-01] MEDS: LINEZOLID 600 MG/D5W (PMX) 300 ML IVPB SCH ×2 (09:19→21:26)
[2017-02-01] MEDS: ACETAMINOPHEN 325 MG TAB PO PRN (09:19)
[2017-02-01] MEDS: NYSTATIN SUSP 5 ML CUP PO SCH ×4 (09:19→21:26)
[2017-02-01] MEDS: FLUCONAZOLE 100 MG TAB GTB SCH (09:19)
[2017-02-01] MEDS: FAMOTIDINE 20 MG INJ IV SCH (09:19)
[2017-02-01] MEDS: ENOXAPARIN 30 MG/0.3 ML SYG SC SCH (09:40)
[2017-02-01 10:46] LABS: NEUTROPHILS % 80.4 % (39.0-77.0)
[2017-02-01 10:47] LABS: BASOPHILS % 0.2 % (0.0-2.0); LYMPHOCYTES # 1.2 10^3/ul (0.8-2.9); LYMPHOCYTES % 7.6 % (15.0-51.0); MONOCYTE # 1.5 10^3/ul (0.3-0.9); MONOCYTES % 9.5 % (0.0-11.0); NEUTROPHIL # 12.5 10^3/ul (1.6-7.5)
--- NOTE | 2017-02-01 11:12 | CONS ---
Date/Time of Note Date/Time of Note DATE: 02/01/17 TIME: 11:08 Consult Date/Type/Reason Admit Date/Time January 29, 2017 at 18:29 Initial Consult Date 01/31/17 Type of Consultation: Pulmonary Subjective Patient appears comfortable this morning no acute distress Objective Vital Signs Date Time Temp Pulse Resp B/P Pulse Ox O2 Delivery O2 Flow Rate FiO2 02/01/17 08:40 95 5.0 28 02/01/17 08:40 78 16 Aerosol T Tube 02/01/17 08:31 99.0 136/62 Intake and Output 01/31/17 01/31/17 02/01/17 15:00 23:00 07:00 Intake Total 600 ml 525 ml 1300 ml Balance 600 ml 525 ml 1300 ml Exam PHYSICAL EXAMINATION: GENERAL: Elderly awake, alert, currently in no distress. VITAL SIGNS: As above HEENT: Supple. NECK: No JVD, no lymphadenopathy, midline trachea, no thyromegaly. Pupils are small bilaterally. There is a tracheostomy in place with clean insertion site. LUNGS: Clear to auscultation. HEART: S1, S2 audible, no murmurs, regular rhythm. ABDOMEN: Soft. G-tube in place. There is a well-healed laparotomy scar. EXTREMITIES: No peripheral edema. Pulses 1+ bilaterally. NEUROLOGIC: Patient is awake, alert, has intact cranial nerves. Follows commands and moves all 4 extremities on command. Results/Medications Result Diagram: 02/01/17 0700 02/01/17 0700 Results 24 hrs Laboratory Tests Test 02/01/17 07:00 White Blood Count 15.5 #H Red Blood Count 3.04 L Hemoglobin 9.7 L Hematocrit 30.7 L Mean Corpuscular Volume 101.0 Mean Corpuscular Hemoglobin 31.9 Mean Corpuscular Hemoglobin Concent 31.6 L Red Cell Distribution Width 15.4 H Platelet Count 321 Mean Platelet Volume 10.2 Neutrophils % 80.4 H Band Neutrophils % 0.0 Lymphocytes % 7.6 L Monocytes % 9.5 Eosinophils % 0.0 Basophils % 0.2 Nucleated Red Blood Cells % 0.0 Neutrophils # 12.5 H Lymphocytes # 1.2 Monocytes # 1.5 H Eosinophils # 0.0 Basophils # 0.0 Nucleated Red Blood Cells # 0.0 Sodium Level 136 Potassium Level 3.7 Chloride Level 103 Carbon Dioxide Level 28 Anion Gap 9 Blood Urea Nitrogen 24 H Creatinine 0.57 Glucose Level 179 Calcium Level 8.8 Medications Current Medications Acetaminophen (Tylenol Tab) 650 mg Q6H PRN PO PAIN LEVEL 1-3 OR FEVER Last administered on 02/01/17 09:19; Admin Dose 650 MG; Start 01/29/17 at 20:30 Morphine Sulfate (morphine) 2 mg Q4H PRN IV PAIN LEVEL 7-10 Last administered on 02/01/17 10:20; Admin Dose 2 MG; Start 01/29/17 at 20:30 Famotidine (Pepcid Iv) 20 mg DAILY IV Last administered on 02/01/17 09:19; Admin Dose 20 MG; Start 01/29/17 at 21:00 Enoxaparin Sodium 30 mg 30 mg DAILY SC Last administered on 02/01/17 09:40; Admin Dose 30 MG; Start 01/30/17 at 09:00 Ceftriaxone Sodium 50 ml @ 100 mls/hr DAILY IVPB Last administered on 09:19; Admin Dose 100 MLS/HR; Start 01/30/17 at 09:00 Metronidazole 100 ml @ 100 mls/hr Q8 IVPB Last administered on 02/01/17 05:44 ; Admin Dose 100 MLS/HR; Start 01/30/17 at 14:00 Linezolid 300 ml @ 300 mls/hr Q12 IVPB Last administered on 02/01/17 09:19; Admin Dose 300 MLS/HR; Start 01/31/17 at 21:00 Sodium Chloride (1/2 NS) 1,000 ml @ 20 mls/hr Q24H IV Last administered on 13:01; Admin Dose 60 MLS/HR; Start 01/31/17 at 12:30 Fluconazole (Diflucan) 100 mg DAILY GTB Last administered on 02/01/17 09:19; Admin Dose 100 MG; Start 01/31/17 at 14:00 Nystatin (Nystatin Susp) 5 ml QID PO Last administered on 02/01/17 09:19; Admin Dose 5 ML; Start 01/31/17 at 17:00 Assessment/Plan Chief Complaint/Hosp Course ASSESSMENT: 1. Acute diverticulitis 2. VRE UTI 3. Chronic respiratory failure. The patient doing very well on T-piece. 4. History of Guillain-[place] syndrome. 5. History of right tibial knee fracture 6. Diastolic dysfunction with atrial fibrillation Plan 1. Continue antibiotics 2. Continue cool aerosol 3. Aspiration precautions 4. DVT and GI prophylaxis Disposition Continue current level of care Problems: SHANNA TAYLOR MD, [facility] February 01, 2017 11:12
[2017-02-01] MEDS: SOD CHLORIDE 0.45% 1,000 ML IV SCH (14:16)
--- NOTE | 2017-02-01 14:59 | CONS ---
Date/Time of Note Date/Time of Note DATE: 02/01/17 TIME: 14:57 Assessment/Plan Assessment/Plan Chief Complaint/Hosp Course SUBJECTIVE: No acute changes. The patient is awake, communicative, in no distress. No fevers. MICROBIOLOGY: Blood culture growing bacillus species. Urine culture grew VRE. ANTIMICROBIALS: 1. Zyvox. 2. Flagyl. 3. Rocephin. 4. Diflucan INDWELLINGS: Trach, PEG. DIAGNOSTICS: CT of the abdomen and pelvis on admission revealed uncomplicated moderate diverticulitis, underlying neoplasm is not excluded. Chest x-ray revealed improved aeration of the lower lobe compared to 01/09/2017. PHYSICAL EXAMINATION: GENERAL: This is a chronically ill-appearing, well-developed, elderly woman, who is awake, communicative in no distress. HEENT: Head atraumatic, normocephalic. Sclerae anicteric. Buccal mucosa dry. NECK: Supple. Tracheostomy present. CHEST: Rise symmetrical. Breath sounds diminished to bases. HEART: S1, S2. ABDOMEN: Soft, bowel sounds present. EXTREMITIES: Without cyanosis. ASSESSMENT: 1. Acute abdominal pain secondary to diverticulitis and urinary tract infection. 2. Bacillus species bacteremia consistent with contaminant. 3. Vancomycin-resistant enterococcus urinary tract infection. 4. Chronic respiratory failure. 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 History of spinal fusion. 7. Diabetes. 8. Atrial fibrillation. 9. Oral thrush PLAN: Remains stable, continue antibiotics, f/u repeat blood cultures. Ortho rec-s noted [facility] staff Problems: Consultation Date/Type/Reason Admit Date/Time January 29, 2017 at 18:29 Initial Consult Date 01/31/17 Type of Consultation: ID Exam/Review of Systems Vital Signs Vitals Vital Signs Date Time Temp Pulse Resp B/P Pulse Ox O2 Delivery O2 Flow Rate FiO2 02/01/17 12:30 80 02/01/17 12:24 98 5.0 28 02/01/17 12:24 18 Aerosol T Tube 02/01/17 12:08 97.5 136/98 Intake and Output 01/31/17 01/31/17 02/01/17 15:00 23:00 07:00 Intake Total 600 ml 525 ml 1300 ml Balance 600 ml 525 ml 1300 ml Results Result Diagram: 02/01/17 0700 02/01/17 0700 Results 24 hrs Laboratory Tests Test 02/01/17 07:00 White Blood Count 15.5 #H Red Blood Count 3.04 L Hemoglobin 9.7 L Hematocrit 30.7 L Mean Corpuscular Volume 101.0 Mean Corpuscular Hemoglobin 31.9 Mean Corpuscular Hemoglobin Concent 31.6 L Red Cell Distribution Width 15.4 H Platelet Count 321 Mean Platelet Volume 10.2 Neutrophils % 80.4 H Band Neutrophils % 0.0 Lymphocytes % 7.6 L Monocytes % 9.5 Eosinophils % 0.0 Basophils % 0.2 Nucleated Red Blood Cells % 0.0 Neutrophils # 12.5 H Lymphocytes # 1.2 Monocytes # 1.5 H Eosinophils # 0.0 Basophils # 0.0 Nucleated Red Blood Cells # 0.0 Sodium Level 136 Potassium Level 3.7 Chloride Level 103 Carbon Dioxide Level 28 Anion Gap 9 Blood Urea Nitrogen 24 H Creatinine 0.57 Glucose Level 179 Calcium Level 8.8 Medications Medications Current Medications Acetaminophen (Tylenol Tab) 650 mg Q6H PRN PO PAIN LEVEL 1-3 OR FEVER Last administered on 02/01/17 09:19; Admin Dose 650 MG; Start 01/29/17 at 20:30 Morphine Sulfate (morphine) 2 mg Q4H PRN IV PAIN LEVEL 7-10 Last administered on 02/01/17 10:20; Admin Dose 2 MG; Start 01/29/17 at 20:30 Famotidine (Pepcid Iv) 20 mg DAILY IV Last administered on 02/01/17 09:19; Admin Dose 20 MG; Start 01/29/17 at 21:00 Enoxaparin Sodium 30 mg 30 mg DAILY SC Last administered on 02/01/17 09:40; Admin Dose 30 MG; Start 01/30/17 at 09:00 Ceftriaxone Sodium 50 ml @ 100 mls/hr DAILY IVPB Last administered on 09:19; Admin Dose 100 MLS/HR; Start 01/30/17 at 09:00 Metronidazole 100 ml @ 100 mls/hr Q8 IVPB Last administered on 02/01/17 14:17 ; Admin Dose 100 MLS/HR; Start 01/30/17 at 14:00 Linezolid 300 ml @ 300 mls/hr Q12 IVPB Last administered on 02/01/17 09:19; Admin Dose 300 MLS/HR; Start 01/31/17 at 21:00 Sodium Chloride (1/2 NS) 1,000 ml @ 20 mls/hr Q24H IV Last administered on 14:16; Admin Dose 20 MLS/HR; Start 01/31/17 at 12:30 Fluconazole (Diflucan) 100 mg DAILY GTB Last administered on 02/01/17 09:19; Admin Dose 100 MG; Start 01/31/17 at 14:00 Nystatin (Nystatin Susp) 5 ml QID PO Last administered on 02/01/17 14:16; Admin Dose 5 ML; Start 01/31/17 at 17:00 KRISHNA PINTO NP February 01, 2017 14:59
--- NOTE | 2017-02-01 17:08 | PN ---
Date/Time of Note Date/Time of Note DATE: 02/01/17 TIME: 17:06 Assessment/Plan VTE Prophylaxis VTE Prophylaxis Intervention: SCD's Lines/Catheters IV Catheter Type (from [facility]): [place] Urinary Cath still in place: No Assessment/Plan Chief Complaint/Hosp Course ASSESSMENT AND PLAN: 1. VRE urinary tract infection. Continue Zyvox. Dr. Gibson is following an infection disease consultation. 2. Abdominal pain most likely secondary to diverticulitis and urinary tract infection. Dr. Shelby is following in gastroenterology consultation. 3. Moderate diverticulitis per CT. Continue antibiotics and IV fluids. 4. Chronic diastolic dysfunction congestive heart failure with preserved ejection fraction of 65. 5. Hypertension. 6. History of atrial fibrillation and left lower extremity deep venous thrombosis. Continue Eliquis. 7. Dysphagia with G-tube. 8. History of acute respiratory failure with tracheostomy. Dr. Araujo is following in pulmonology consultation 9. History of Guillian-[place]. 10. History of her proximal right tibia plateau fracture, status post surgery with plate and screws. Dr. Jimenez, orthopedic surgery consultation is appreciated. Okay to start physical therapy. Patient's condition and plan of care discussed with patient and patient daughter Dee at the bedside. All questions answered. Continue Protonix for peptic ulcer disease prophylaxis. Further recommendations based on clinical course. Plan of care discussed with Dr. Murillo. Problems: Subjective 24 Hr Interval Summary Free Text/Dictation Patient started on G-tube feeding, remains afebrile, had diarrhea per RN, will check stool for C. difficile. Exam/Review of Systems Vital Signs Vitals Vital Signs Date Time Temp Pulse Resp B/P Pulse Ox O2 Delivery O2 Flow Rate FiO2 02/01/17 16:35 78 02/01/17 15:38 98.2 18 108/53 97 02/01/17 12:24 5.0 28 02/01/17 12:24 Aerosol T Tube Intake and Output 01/31/17 01/31/17 02/01/17 15:00 23:00 07:00 Intake Total 600 ml 525 ml 1300 ml Balance 600 ml 525 ml 1300 ml Exam GENERAL: Well-developed, well-nourished female currently is awake, alert to name, nonverbal. HEENT: Head is atraumatic, normocephalic. Pupils equal and reactive to light and accommodation. Oral mucosa is pink and moist. NECK: Supple. There is a tracheostomy at the base of the neck with no bleeding. LUNGS: Slightly diminished at the bases. There is no rhonchi, wheezes, rales noted. CARDIOVASCULAR: Normal S1, S2. No murmurs, gallops, clicks, rubs noted. ABDOMEN: Round, soft, nondistended. The patient has mild tenderness at the lower quadrants. G-tube with intact stoma. Bowel sounds hypoactive. EXTREMITIES: No edema, clubbing, cyanosis. SKIN: There is no rash, petechiae noted. PSYCHOLOGICAL: The patient is awake, alert, nonverbal. The patient is bedridden. Results Result Diagram: 02/01/17 0700 02/01/17 0700 Results 24 hrs Laboratory Tests Test 02/01/17 07:00 White Blood Count 15.5 #H Red Blood Count 3.04 L Hemoglobin 9.7 L Hematocrit 30.7 L Mean Corpuscular Volume 101.0 Mean Corpuscular Hemoglobin 31.9 Mean Corpuscular Hemoglobin Concent 31.6 L Red Cell Distribution Width 15.4 H Platelet Count 321 Mean Platelet Volume 10.2 Neutrophils % 80.4 H Band Neutrophils % 0.0 Lymphocytes % 7.6 L Monocytes % 9.5 Eosinophils % 0.0 Basophils % 0.2 Nucleated Red Blood Cells % 0.0 Neutrophils # 12.5 H Lymphocytes # 1.2 Monocytes # 1.5 H Eosinophils # 0.0 Basophils # 0.0 Nucleated Red Blood Cells # 0.0 Sodium Level 136 Potassium Level 3.7 Chloride Level 103 Carbon Dioxide Level 28 Anion Gap 9 Blood Urea Nitrogen 24 H Creatinine 0.57 Glucose Level 179 Calcium Level 8.8 Medications Medications Current Medications Acetaminophen (Tylenol Tab) 650 mg Q6H PRN PO PAIN LEVEL 1-3 OR FEVER Last administered on 02/01/17 09:19; Admin Dose 650 MG; Start 01/29/17 at 20:30 Morphine Sulfate (morphine) 2 mg Q4H PRN IV PAIN LEVEL 7-10 Last administered on 02/01/17 10:20; Admin Dose 2 MG; Start 01/29/17 at 20:30 Famotidine (Pepcid Iv) 20 mg DAILY IV Last administered on 02/01/17 09:19; Admin Dose 20 MG; Start 01/29/17 at 21:00 Enoxaparin Sodium 30 mg 30 mg DAILY SC Last administered on 02/01/17 09:40; Admin Dose 30 MG; Start 01/30/17 at 09:00 Ceftriaxone Sodium 50 ml @ 100 mls/hr DAILY IVPB Last administered on 09:19; Admin Dose 100 MLS/HR; Start 01/30/17 at 09:00 Metronidazole 100 ml @ 100 mls/hr Q8 IVPB Last administered on 02/01/17 14:17 ; Admin Dose 100 MLS/HR; Start 01/30/17 at 14:00 Linezolid 300 ml @ 300 mls/hr Q12 IVPB Last administered on 02/01/17 09:19; Admin Dose 300 MLS/HR; Start 01/31/17 at 21:00 Sodium Chloride (1/2 NS) 1,000 ml @ 20 mls/hr Q24H IV Last administered on 14:16; Admin Dose 20 MLS/HR; Start 01/31/17 at 12:30 Fluconazole (Diflucan) 100 mg DAILY GTB Last administered on 02/01/17 09:19; Admin Dose 100 MG; Start 01/31/17 at 14:00 Nystatin (Nystatin Susp) 5 ml QID PO Last administered on 02/01/17 14:16; Admin Dose 5 ML; Start 01/31/17 at 17:00 IGNACIO ARROYO February 01, 2017 17:08
[2017-02-02] VITALS (12 sets, daily range): BP systolic 111–145; BP diastolic 56–66; PULSE 75–80; RESP 17–19
[2017-02-02] MEDS: metroNIDAZOLE 500 MG/NS (PMX) 100 ML IVPB SCH ×3 (06:56→21:57)
[2017-02-02] MEDS: CEFTRIAXONE 1 GM/50 ML (PMX) 50 ML IVPB SCH (09:05)
[2017-02-02] MEDS: FAMOTIDINE 20 MG INJ IV SCH (09:05)
[2017-02-02] MEDS: FLUCONAZOLE 100 MG TAB GTB SCH (09:05)
[2017-02-02] MEDS: LINEZOLID 600 MG/D5W (PMX) 300 ML IVPB SCH ×2 (09:05→20:46)
[2017-02-02] MEDS: NYSTATIN SUSP 5 ML CUP PO SCH ×4 (09:06→20:46)
[2017-02-02] MEDS: ENOXAPARIN 30 MG/0.3 ML SYG SC SCH (09:20)
[2017-02-02 09:58] LABS: ADD SCAN DIFF NO
[2017-02-02 10:15] LABS: BASOPHIL # 0.1 10^3/ul (0.0-0.1); BASOPHILS % 0.3 % (0.0-2.0); EOSINOPHILS # 0.5 10^3/ul (0.0-0.5); EOSINOPHILS % 2.9 % (0.0-7.0); HEMATOCRIT 27.7 % (37.0-47.0); HEMOGLOBIN 8.8 g/dl (12.0-16.0); LYMPHOCYTES # 2.3 10^3/ul (0.8-2.9); LYMPHOCYTES % 14.5 % (15.0-51.0); MEAN CORPUSCULAR HEMOGLOBIN 31.7 pg (29.0-33.0); MEAN CORPUSCULAR HGB CONC 31.8 g/dl (32.0-37.0); MEAN CORPUSCULAR VOLUME 99.6 fl (82.0-101.0); MEAN PLATELET VOLUME 9.8 fl (7.4-10.4); MONOCYTE # 1.3 10^3/ul (0.3-0.9); MONOCYTES % 8.5 % (0.0-11.0); NEUTROPHIL # 10.9 10^3/ul (1.6-7.5); NEUTROPHILS % 69.8 % (39.0-77.0); PLATELET COUNT 288 10^3/UL (140-415); RED BLOOD COUNT 2.78 10^6/ul (4.20-5.40); RED CELL DISTRIBUTION WIDTH 15.5 % (11.5-14.5); WHITE BLOOD COUNT 15.7 10^3/ul (4.8-10.8)
[2017-02-02 10:28] LABS: POTASSIUM 3.3 mmol/L (3.5-5.1)
[2017-02-02 10:31] LABS: CREATININE 0.56 mg/dl (0.44-1.00)
[2017-02-02 10:32] LABS: CALCIUM 8.7 mg/dl (8.4-10.2)
--- NOTE | 2017-02-02 11:17 | CONS ---
Date/Time of Note Date/Time of Note DATE: 02/02/17 TIME: 11:16 Consult Date/Type/Reason Admit Date/Time January 29, 2017 at 18:29 Initial Consult Date 01/31/17 Type of Consultation: Pulmonary ICU Subjective Patient comfortable this morning no new events Objective Vital Signs Date Time Temp Pulse Resp B/P Pulse Ox O2 Delivery O2 Flow Rate FiO2 02/02/17 11:15 98.0 75 19 129/60 99 02/02/17 08:27 Aerosol 5.0 28 T Tube Intake and Output 02/01/17 02/01/17 02/02/17 15:00 23:00 07:00 Intake Total 1100 ml Balance 1100 ml Exam PHYSICAL EXAMINATION: GENERAL: Elderly awake, alert, currently in no distress. VITAL SIGNS: As above HEENT: Supple. NECK: No JVD, no lymphadenopathy, midline trachea, no thyromegaly. Pupils are small bilaterally. There is a tracheostomy in place with clean insertion site. LUNGS: Clear to auscultation. HEART: S1, S2 audible, no murmurs, regular rhythm. ABDOMEN: Soft. G-tube in place. There is a well-healed laparotomy scar. EXTREMITIES: No peripheral edema. Pulses 1+ bilaterally. NEUROLOGIC: Patient is awake, alert, has intact cranial nerves. Follows commands and moves all 4 extremities on command. Results/Medications Result Diagram: 02/02/17 0949 02/02/17 0949 Results 24 hrs Laboratory Tests Test 02/02/17 09:49 White Blood Count 15.7 H Red Blood Count 2.78 L Hemoglobin 8.8 L Hematocrit 27.7 L Mean Corpuscular Volume 99.6 Mean Corpuscular Hemoglobin 31.7 Mean Corpuscular Hemoglobin Concent 31.8 L Red Cell Distribution Width 15.5 H Platelet Count 288 Mean Platelet Volume 9.8 Neutrophils % 69.8 Lymphocytes % 14.5 L Monocytes % 8.5 Eosinophils % 2.9 Basophils % 0.3 Nucleated Red Blood Cells % 0.0 Neutrophils # 10.9 H Lymphocytes # 2.3 Monocytes # 1.3 H Eosinophils # 0.5 Basophils # 0.1 Nucleated Red Blood Cells # 0.0 Sodium Level 137 Potassium Level 3.3 L Chloride Level 103 Carbon Dioxide Level 26 Anion Gap 11 Blood Urea Nitrogen 15 # Creatinine 0.56 Glucose Level 111 # Calcium Level 8.7 Medications Current Medications Acetaminophen (Tylenol Tab) 650 mg Q6H PRN PO PAIN LEVEL 1-3 OR FEVER Last administered on 02/01/17 09:19; Admin Dose 650 MG; Start 01/29/17 at 20:30 Morphine Sulfate (morphine) 2 mg Q4H PRN IV PAIN LEVEL 7-10 Last administered on 02/01/17 10:20; Admin Dose 2 MG; Start 01/29/17 at 20:30 Famotidine (Pepcid Iv) 20 mg DAILY IV Last administered on 02/02/17 09:05; Admin Dose 20 MG; Start 01/29/17 at 21:00 Enoxaparin Sodium 30 mg 30 mg DAILY SC Last administered on 02/02/17 09:20; Admin Dose 30 MG; Start 01/30/17 at 09:00 Ceftriaxone Sodium 50 ml @ 100 mls/hr DAILY IVPB Last administered on 09:05; Admin Dose 100 MLS/HR; Start 01/30/17 at 09:00 Metronidazole 100 ml @ 100 mls/hr Q8 IVPB Last administered on 02/02/17 06:56 ; Admin Dose 100 MLS/HR; Start 01/30/17 at 14:00 Linezolid 300 ml @ 300 mls/hr Q12 IVPB Last administered on 02/02/17 09:05; Admin Dose 300 MLS/HR; Start 01/31/17 at 21:00 Sodium Chloride (1/2 NS) 1,000 ml @ 20 mls/hr Q24H IV Last administered on 14:16; Admin Dose 20 MLS/HR; Start 01/31/17 at 12:30 Fluconazole (Diflucan) 100 mg DAILY GTB Last administered on 02/02/17 09:05; Admin Dose 100 MG; Start 01/31/17 at 14:00 Nystatin (Nystatin Susp) 5 ml QID PO Last administered on 02/02/17 09:06; Admin Dose 5 ML; Start 01/31/17 at 17:00 Assessment/Plan Chief Complaint/Hosp Course ASSESSMENT: 1. Acute diverticulitis 2. VRE UTI 3. Chronic respiratory failure. The patient doing very well on T-piece. 4. History of Guillain-[place] syndrome. 5. History of right tibial knee fracture 6. Diastolic dysfunction with atrial fibrillation Plan 1. Continue antibiotics 2. Continue cool aerosol 3. Aspiration precautions 4. DVT and GI prophylaxis Disposition Consider transfer to [facility] Problems: SHANNA TAYLOR MD, [facility] February 02, 2017 11:17
[2017-02-02] MEDS: SOD CHLORIDE 0.45% 1,000 ML IV SCH (12:31)
[2017-02-02] MEDS: ALBUTEROL/IPRATROPIUM (NEB) 3 ML AMP HHN PRN ×2 (12:55→20:55)
--- NOTE | 2017-02-02 13:45 | PN ---
Date/Time of Note Date/Time of Note DATE: 02/02/17 TIME: 13:45 Assessment/Plan Lines/Catheters IV [facility] Type (from [facility]): Peripheral IV Urinary Cath still in place: No Assessment/Plan Assessment/Plan 1. VRE urinary tract infection. Continue Zyvox. Dr. Gibson is following an infection disease consultation. 2. Abdominal pain most likely secondary to diverticulitis and urinary tract infection. Dr. Shelby is following in gastroenterology consultation. 3. Moderate diverticulitis per CT. Continue antibiotics and IV fluids. 4. Chronic diastolic dysfunction congestive heart failure with preserved ejection fraction of 65. 5. Hypertension. 6. History of atrial fibrillation and left lower extremity deep venous thrombosis. Continue Eliquis. 7. Dysphagia with G-tube. 8. History of acute respiratory failure with tracheostomy. Dr. Araujo is following in pulmonology consultation 9. History of Guillian-[place]. 10. History of her proximal right tibia plateau fracture, status post surgery with plate and screws. Dr. Jimenez, orthopedic surgery consultation is appreciated. Okay to start physical therapy. Patient's condition and plan of care discussed with patient and patient daughter Dee at the bedside. All questions answered. Continue Protonix for peptic ulcer disease prophylaxis. Further recommendations based on clinical course. Plan of care discussed with Dr. Murillo. Exam/Review of Systems Vital Signs Vitals Vital Signs Date Time Temp Pulse Resp B/P Pulse Ox O2 Delivery O2 Flow Rate FiO2 02/02/17 12:55 76 20 98 Aerosol 5.0 28 T Tube 02/02/17 11:15 98.0 129/60 Intake and Output 02/01/17 02/01/17 02/02/17 15:00 23:00 07:00 Intake Total 1100 ml Balance 1100 ml Results Result Diagram: 02/02/17 0949 02/02/17 0949 Results 24 hrs Laboratory Tests Test 02/02/17 09:49 White Blood Count 15.7 H Red Blood Count 2.78 L Hemoglobin 8.8 L Hematocrit 27.7 L Mean Corpuscular Volume 99.6 Mean Corpuscular Hemoglobin 31.7 Mean Corpuscular Hemoglobin Concent 31.8 L Red Cell Distribution Width 15.5 H Platelet Count 288 Mean Platelet Volume 9.8 Neutrophils % 69.8 Lymphocytes % 14.5 L Monocytes % 8.5 Eosinophils % 2.9 Basophils % 0.3 Nucleated Red Blood Cells % 0.0 Neutrophils # 10.9 H Lymphocytes # 2.3 Monocytes # 1.3 H Eosinophils # 0.5 Basophils # 0.1 Nucleated Red Blood Cells # 0.0 Sodium Level 137 Potassium Level 3.3 L Chloride Level 103 Carbon Dioxide Level 26 Anion Gap 11 Blood Urea Nitrogen 15 # Creatinine 0.56 Glucose Level 111 # Calcium Level 8.7 Medications Medications Current Medications Acetaminophen (Tylenol Tab) 650 mg Q6H PRN PO PAIN LEVEL 1-3 OR FEVER Last administered on 02/01/17 09:19; Admin Dose 650 MG; Start 01/29/17 at 20:30 Morphine Sulfate (morphine) 2 mg Q4H PRN IV PAIN LEVEL 7-10 Last administered on 02/01/17 10:20; Admin Dose 2 MG; Start 01/29/17 at 20:30 Famotidine (Pepcid Iv) 20 mg DAILY IV Last administered on 02/02/17 09:05; Admin Dose 20 MG; Start 01/29/17 at 21:00 Enoxaparin Sodium 30 mg 30 mg DAILY SC Last administered on 02/02/17 09:20; Admin Dose 30 MG; Start 01/30/17 at 09:00 Ceftriaxone Sodium 50 ml @ 100 mls/hr DAILY IVPB Last administered on 09:05; Admin Dose 100 MLS/HR; Start 01/30/17 at 09:00 Metronidazole 100 ml @ 100 mls/hr Q8 IVPB Last administered on 02/02/17 06:56 ; Admin Dose 100 MLS/HR; Start 01/30/17 at 14:00 Linezolid 300 ml @ 300 mls/hr Q12 IVPB Last administered on 02/02/17 09:05; Admin Dose 300 MLS/HR; Start 01/31/17 at 21:00 Sodium Chloride (1/2 NS) 1,000 ml @ 20 mls/hr Q24H IV Last administered on 12:31; Admin Dose 20 MLS/HR; Start 01/31/17 at 12:30 Fluconazole (Diflucan) 100 mg DAILY GTB Last administered on 02/02/17 09:05; Admin Dose 100 MG; Start 01/31/17 at 14:00 Nystatin (Nystatin Susp) 5 ml QID PO Last administered on 02/02/17 09:06; Admin Dose 5 ML; Start 01/31/17 at 17:00 CHRISTINA CORONA February 02, 2017 13:45
--- NOTE | 2017-02-02 14:28 | CONS ---
Date/Time of Note Date/Time of Note DATE: 02/02/17 TIME: 14:27 Assessment/Plan Assessment/Plan Chief Complaint/Hosp Course SUBJECTIVE: No acute changes. The patient is awake, communicative, in no distress. No fevers. MICROBIOLOGY: Blood culture growing bacillus species. Urine culture grew VRE. ANTIMICROBIALS: 1. Zyvox. 2. Flagyl. 3. Rocephin. 4. Diflucan INDWELLINGS: Trach, PEG. DIAGNOSTICS: CT of the abdomen and pelvis on admission revealed uncomplicated moderate diverticulitis, underlying neoplasm is not excluded. Chest x-ray revealed improved aeration of the lower lobe compared to 01/09/2017. PHYSICAL EXAMINATION: GENERAL: This is a chronically ill-appearing, well-developed, elderly woman, who is awake, communicative in no distress. HEENT: Head atraumatic, normocephalic. Sclerae anicteric. Buccal mucosa dry. NECK: Supple. Tracheostomy present. CHEST: Rise symmetrical. Breath sounds diminished to bases. HEART: S1, S2. ABDOMEN: Soft, bowel sounds present. EXTREMITIES: Without cyanosis. ASSESSMENT: 1. Acute abdominal pain secondary to diverticulitis and urinary tract infection. 2. Bacillus species bacteremia consistent with contaminant. 3. Vancomycin-resistant enterococcus urinary tract infection. 4. Chronic respiratory failure. 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 History of spinal fusion. 7. Diabetes. 8. Atrial fibrillation. 9. Oral thrush PLAN: Remains stable, repeat bld cx negative, continue antibiotics, pulmonary rec-s, check PVR to r/o retention DW staff Problems: Consultation Date/Type/Reason Admit Date/Time January 29, 2017 at 18:29 Initial Consult Date 01/31/17 Type of Consultation: ID Exam/Review of Systems Vital Signs Vitals Vital Signs Date Time Temp Pulse Resp B/P Pulse Ox O2 Delivery O2 Flow Rate FiO2 02/02/17 12:55 76 20 98 Aerosol 5.0 28 T Tube 02/02/17 11:15 98.0 129/60 Intake and Output 02/01/17 02/01/17 02/02/17 15:00 23:00 07:00 Intake Total 1100 ml Balance 1100 ml Results Result Diagram: 02/02/17 0949 02/02/17 0949 Results 24 hrs Laboratory Tests Test 02/02/17 09:49 White Blood Count 15.7 H Red Blood Count 2.78 L Hemoglobin 8.8 L Hematocrit 27.7 L Mean Corpuscular Volume 99.6 Mean Corpuscular Hemoglobin 31.7 Mean Corpuscular Hemoglobin Concent 31.8 L Red Cell Distribution Width 15.5 H Platelet Count 288 Mean Platelet Volume 9.8 Neutrophils % 69.8 Lymphocytes % 14.5 L Monocytes % 8.5 Eosinophils % 2.9 Basophils % 0.3 Nucleated Red Blood Cells % 0.0 Neutrophils # 10.9 H Lymphocytes # 2.3 Monocytes # 1.3 H Eosinophils # 0.5 Basophils # 0.1 Nucleated Red Blood Cells # 0.0 Sodium Level 137 Potassium Level 3.3 L Chloride Level 103 Carbon Dioxide Level 26 Anion Gap 11 Blood Urea Nitrogen 15 # Creatinine 0.56 Glucose Level 111 # Calcium Level 8.7 Medications Medications Current Medications Acetaminophen (Tylenol Tab) 650 mg Q6H PRN PO PAIN LEVEL 1-3 OR FEVER Last administered on 02/01/17 09:19; Admin Dose 650 MG; Start 01/29/17 at 20:30 Morphine Sulfate (morphine) 2 mg Q4H PRN IV PAIN LEVEL 7-10 Last administered on 02/01/17 10:20; Admin Dose 2 MG; Start 01/29/17 at 20:30 Famotidine (Pepcid Iv) 20 mg DAILY IV Last administered on 02/02/17 09:05; Admin Dose 20 MG; Start 01/29/17 at 21:00 Enoxaparin Sodium 30 mg 30 mg DAILY SC Last administered on 02/02/17 09:20; Admin Dose 30 MG; Start 01/30/17 at 09:00 Ceftriaxone Sodium 50 ml @ 100 mls/hr DAILY IVPB Last administered on 09:05; Admin Dose 100 MLS/HR; Start 01/30/17 at 09:00 Metronidazole 100 ml @ 100 mls/hr Q8 IVPB Last administered on 02/02/17 06:56 ; Admin Dose 100 MLS/HR; Start 01/30/17 at 14:00 Linezolid 300 ml @ 300 mls/hr Q12 IVPB Last administered on 02/02/17 09:05; Admin Dose 300 MLS/HR; Start 01/31/17 at 21:00 Sodium Chloride (1/2 NS) 1,000 ml @ 20 mls/hr Q24H IV Last administered on 12:31; Admin Dose 20 MLS/HR; Start 01/31/17 at 12:30 Fluconazole (Diflucan) 100 mg DAILY GTB Last administered on 02/02/17 09:05; Admin Dose 100 MG; Start 01/31/17 at 14:00 Nystatin (Nystatin Susp) 5 ml QID PO Last administered on 02/02/17 09:06; Admin Dose 5 ML; Start 01/31/17 at 17:00 KRISHNA PINTO NP February 02, 2017 14:28
--- NOTE | 2017-02-02 21:09 | PN ---
DATE: CHIEF COMPLAINT: At this time, the patient has no vomiting. She did have vomiting earlier yesterda y the day before. Right now, she is not vomiting, and the workup shows she has evidence of divertic ulitis. PHYSICAL EXAMINATION: ABDOMEN: Showed minimal tenderness in the left lower quadrant. CAT scan showed diverticulitis. LABORATORY WORKUP: White count is around 15,700. Hemoglobin is 8.8. CLINICAL IMPRESSION: Diverticulitis. She is on multiple antibiotics infectious disease consu ltation. PLAN: Continue antibiotic therapy. Maybe you can repeat the CAT scan of the abdomen next week. Dictated By: TROY AKBAR MD NC/NTS Conf#: [id number] DID#: [id number] CC: JONAS KHAN MD;*EndCC*
[2017-02-03] VITALS (11 sets, daily range): BP systolic 131–160; BP diastolic 62–74; PULSE 74–85; RESP 17–20
[2017-02-03] MEDS: metroNIDAZOLE 500 MG/NS (PMX) 100 ML IVPB SCH ×2 (06:10→16:03)
[2017-02-03] MEDS: FAMOTIDINE 20 MG INJ IV SCH (08:41)
[2017-02-03] MEDS: FLUCONAZOLE 100 MG TAB GTB SCH (08:41)
[2017-02-03] MEDS: ENOXAPARIN 30 MG/0.3 ML SYG SC SCH (08:54)
[2017-02-03] MEDS: NYSTATIN SUSP 5 ML CUP PO SCH ×4 (08:58→20:53)
[2017-02-03] MEDS: LINEZOLID 600 MG/D5W (PMX) 300 ML IVPB SCH ×2 (10:02→20:53)
[2017-02-03] MEDS: SOD CHLORIDE 0.45% 1,000 ML IV SCH (13:44)
[2017-02-03] MEDS ORDERED: FUROSEMIDE 40 MG INJ IV SCH (14:30)
--- NOTE | 2017-02-03 14:30 | CONS ---
Date/Time of Note Date/Time of Note DATE: 02/03/17 TIME: 14:28 Consult Date/Type/Reason Admit Date/Time January 29, 2017 at 18:29 Initial Consult Date 01/31/17 Type of Consultation: Pulmonary ICU Subjective Respiratory distress Requires suctioning still sounds congested but able to phonate Objective Vital Signs Date Time Temp Pulse Resp B/P Pulse Ox O2 Delivery O2 Flow Rate FiO2 02/03/17 12:50 79 02/03/17 11:21 98.4 18 160/74 100 02/03/17 05:40 5.0 28 02/02/17 20:55 Aerosol Intake and Output 02/02/17 02/02/17 02/03/17 15:00 23:00 07:00 Intake Total 808 ml 750 ml 1650 ml Balance 808 ml 750 ml 1650 ml Exam PHYSICAL EXAMINATION: GENERAL: Elderly awake, alert, currently in no distress. VITAL SIGNS: As above HEENT: Supple. NECK: No JVD, no lymphadenopathy, midline trachea, no thyromegaly. LUNGS: Clear to auscultation. HEART: S1, S2 audible, no murmurs, regular rhythm. ABDOMEN: Soft. G-tube in place. There is a well-healed laparotomy scar. EXTREMITIES: No peripheral edema. Pulses 1+ bilaterally. NEUROLOGIC: Patient is awake, alert, has intact cranial nerves. Follows commands and moves all 4 extremities on command. Results/Medications Result Diagram: 02/02/17 0949 02/02/17 0949 Medications Current Medications Acetaminophen (Tylenol Tab) 650 mg Q6H PRN PO PAIN LEVEL 1-3 OR FEVER Last administered on 02/01/17 09:19; Admin Dose 650 MG; Start 01/29/17 at 20:30 Morphine Sulfate (morphine) 2 mg Q4H PRN IV PAIN LEVEL 7-10 Last administered on 02/01/17 10:20; Admin Dose 2 MG; Start 01/29/17 at 20:30 Famotidine (Pepcid Iv) 20 mg DAILY IV Last administered on 02/03/17 08:41; Admin Dose 20 MG; Start 01/29/17 at 21:00 Enoxaparin Sodium 30 mg 30 mg DAILY SC Last administered on 02/03/17 08:54; Admin Dose 30 MG; Start 01/30/17 at 09:00 Ceftriaxone Sodium 50 ml @ 100 mls/hr DAILY IVPB Last administered on 09:05; Admin Dose 100 MLS/HR; Start 01/30/17 at 09:00 Metronidazole 100 ml @ 100 mls/hr Q8 IVPB Last administered on 02/03/17 06:10 ; Admin Dose 100 MLS/HR; Start 01/30/17 at 14:00 Linezolid 300 ml @ 300 mls/hr Q12 IVPB Last administered on 02/03/17 10:02; Admin Dose 300 MLS/HR; Start 01/31/17 at 21:00 Sodium Chloride (1/2 NS) 1,000 ml @ 20 mls/hr Q24H IV Last administered on 12:31; Admin Dose 20 MLS/HR; Start 01/31/17 at 12:30 Fluconazole (Diflucan) 100 mg DAILY GTB Last administered on 02/03/17 08:41; Admin Dose 100 MG; Start 01/31/17 at 14:00 Nystatin (Nystatin Susp) 5 ml QID PO Last administered on 02/03/17 13:44; Admin Dose 5 ML; Start 01/31/17 at 17:00 Assessment/Plan Chief Complaint/Hosp Course ASSESSMENT: 1. Acute diverticulitis 2. VRE UTI 3. Chronic respiratory failure. The patient doing very well on T-piece. 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 5. History of right tibial knee fracture 6. Diastolic dysfunction with atrial fibrillation evidence of congestive cardiac failure on exam Plan 1. Continue antibiotics 2. Continue cool aerosol 3. Aspiration precautions 4. DVT and GI prophylaxis 5. Increased diuretics Disposition Consider transfer to [facility] Problems: SHANNA TAYLOR MD, FCCP February 03, 2017 14:30
[2017-02-03] MEDS: CEFTRIAXONE 1 GM/50 ML (PMX) 50 ML IVPB SCH (14:38)
[2017-02-03 16:15] LABS: ADD SCAN DIFF NO
[2017-02-03 16:21] LABS: BASOPHIL # 0.1 10^3/ul (0.0-0.1); BASOPHILS % 0.5 % (0.0-2.0); EOSINOPHILS # 0.3 10^3/ul (0.0-0.5); EOSINOPHILS % 2.3 % (0.0-7.0); HEMATOCRIT 28.9 % (37.0-47.0); HEMOGLOBIN 9.3 g/dl (12.0-16.0); LYMPHOCYTES # 2.2 10^3/ul (0.8-2.9); LYMPHOCYTES % 19.5 % (15.0-51.0); MEAN CORPUSCULAR HEMOGLOBIN 32.4 pg (29.0-33.0); MEAN CORPUSCULAR HGB CONC 32.2 g/dl (32.0-37.0); MEAN CORPUSCULAR VOLUME 100.7 fl (82.0-101.0); MEAN PLATELET VOLUME 9.8 fl (7.4-10.4); MONOCYTE # 1.1 10^3/ul (0.3-0.9); MONOCYTES % 10.1 % (0.0-11.0); PLATELET COUNT 288 10^3/UL (140-415); RED BLOOD COUNT 2.87 10^6/ul (4.20-5.40); RED CELL DISTRIBUTION WIDTH 15.4 % (11.5-14.5)
--- NOTE | 2017-02-03 18:57 | CONS ---
Date/Time of Note Date/Time of Note DATE: 02/03/17 TIME: 18:56 Assessment/Plan Assessment/Plan Chief Complaint/Hosp Course SUBJECTIVE: No acute changes. Alert, feels good, denies pain, no n/v/d. No fevers. MICROBIOLOGY: Blood culture growing bacillus species. Urine culture grew VRE. ANTIMICROBIALS: 1. Zyvox. 2. Flagyl. 3. Rocephin. 4. Diflucan INDWELLINGS: Trach, PEG. DIAGNOSTICS: CT of the abdomen and pelvis on admission revealed uncomplicated moderate diverticulitis, underlying neoplasm is not excluded. Chest x-ray revealed improved aeration of the lower lobe compared to 01/09/2017. PHYSICAL EXAMINATION: GENERAL: This is a chronically ill-appearing, well-developed, elderly woman, who is awake, communicative in no distress. HEENT: Head atraumatic, normocephalic. Sclerae anicteric. Buccal mucosa dry. NECK: Supple. Tracheostomy present. CHEST: Rise symmetrical. Breath sounds diminished to bases. HEART: S1, S2. ABDOMEN: Soft, bowel sounds present. EXTREMITIES: Without cyanosis. ASSESSMENT: 1. Acute abdominal pain secondary to diverticulitis and urinary tract infection ==> improving. 2. Bacillus species bacteremia consistent with contaminant. 3. Vancomycin-resistant enterococcus urinary tract infection. 4. Chronic respiratory failure. 5. History of Guillain-[place] syndrome. 6. History of spinal fusion. 7. Diabetes. 8. Atrial fibrillation. 9. Oral thrush PLAN: Remains stable, repeat bld cx negative, continue antibiotics [facility] staff Problems: Consultation Date/Type/Reason Admit Date/Time January 29, 2017 at 18:29 Initial Consult Date 01/31/17 Type of Consultation: ID Exam/Review of Systems Vital Signs Vitals Vital Signs Date Time Temp Pulse Resp B/P Pulse Ox O2 Delivery O2 Flow Rate FiO2 02/03/17 16:00 74 02/03/17 15:17 98.3 18 145/65 100 02/03/17 05:40 5.0 28 02/02/17 20:55 Aerosol Intake and Output 02/02/17 02/02/17 02/03/17 15:00 23:00 07:00 Intake Total 808 ml 750 ml 1650 ml Balance 808 ml 750 ml 1650 ml Results Result Diagram: 02/03/17 1600 02/02/17 0949 Results 24 hrs Laboratory Tests Test 02/03/17 16:00 White Blood Count 11.0 #H Red Blood Count 2.87 L Hemoglobin 9.3 L Hematocrit 28.9 L Mean Corpuscular Volume 100.7 Mean Corpuscular Hemoglobin 32.4 Mean Corpuscular Hemoglobin Concent 32.2 Red Cell Distribution Width 15.4 H Platelet Count 288 Mean Platelet Volume 9.8 Neutrophils % 63.0 Lymphocytes % 19.5 Monocytes % 10.1 Eosinophils % 2.3 Basophils % 0.5 Nucleated Red Blood Cells % 0.0 Neutrophils # 7.0 Lymphocytes # 2.2 Monocytes # 1.1 H Eosinophils # 0.3 Basophils # 0.1 Nucleated Red Blood Cells # 0.0 Medications Medications Current Medications Acetaminophen (Tylenol Tab) 650 mg Q6H PRN PO PAIN LEVEL 1-3 OR FEVER Last administered on 02/01/17 09:19; Admin Dose 650 MG; Start 01/29/17 at 20:30 Morphine Sulfate (morphine) 2 mg Q4H PRN IV PAIN LEVEL 7-10 Last administered on 02/01/17 10:20; Admin Dose 2 MG; Start 01/29/17 at 20:30 Famotidine (Pepcid Iv) 20 mg DAILY IV Last administered on 02/03/17 08:41; Admin Dose 20 MG; Start 01/29/17 at 21:00 Enoxaparin Sodium 30 mg 30 mg DAILY SC Last administered on 02/03/17 08:54; Admin Dose 30 MG; Start 01/30/17 at 09:00 Ceftriaxone Sodium 50 ml @ 100 mls/hr DAILY IVPB Last administered on 14:38; Admin Dose 100 MLS/HR; Start 01/30/17 at 09:00 Metronidazole 100 ml @ 100 mls/hr Q8 IVPB Last administered on 02/03/17 16:03 ; Admin Dose 100 MLS/HR; Start 01/30/17 at 14:00 Linezolid 300 ml @ 300 mls/hr Q12 IVPB Last administered on 02/03/17 10:02; Admin Dose 300 MLS/HR; Start 01/31/17 at 21:00 Sodium Chloride (1/2 NS) 1,000 ml @ 20 mls/hr Q24H IV Last administered on 12:31; Admin Dose 20 MLS/HR; Start 01/31/17 at 12:30 Fluconazole (Diflucan) 100 mg DAILY GTB Last administered on 02/03/17 08:41; Admin Dose 100 MG; Start 01/31/17 at 14:00 Nystatin (Nystatin Susp) 5 ml QID PO Last administered on 02/03/17 18:39; Admin Dose 5 ML; Start 01/31/17 at 17:00 Furosemide (Lasix) 40 mg DAILY IV Last administered on 02/03/17 16:03; Admin Dose 40 MG; Start 02/03/17 at 14:30 KRISHNA PINTO NP February 03, 2017 18:57
--- NOTE | 2017-02-06 03:39 | DS ---
DATE OF ADMISSION: 01/29/2017 DATE OF DISCHARGE: 02/03/2017 FINAL DIAGNOSES: 1. Vancomycin-resistant Enterococcal urinary tract infection. 2. Abdominal pain secondary to diverticulitis. 3. Diverticulitis. 4. Chronic systolic dysfunction congestive heart failure with preserved ejection fraction of 65%. 5. Hypertension. 6. History of atrial fibrillation. 7. History of left lower extremity deep venous thrombosis. 8. Dysphagia with gastrostomy tube. 9. History of acute respiratory failure with tracheostomy. 10. History of Guillain-[place] Syndrome. 11. History of proximal right tibial plateau fracture, status post surgery with plate and screws. HOSPITAL COURSE: The patient is an 86-year-old female who was recuperating at [facility]. The patient had a history of respiratory failure with tracheostomy, currently on cool aerosol via T-tube, history of diabetes, spinal stenosis, hypertension, atrial fibrillation, history of left lower extremity deep venous thrombosis, history of Guillain-[place] syndrome, hyperlipidemic, dysphag ia with G-tube, and anemia. The patient was brought to the hospital due to abdominal pain and cramp ing for 1 more day. The patient was diagnosed with urinary tract infection and was started on cipro floxacin. The patient also complained of diarrhea. The patient was diagnosed with moderate diverti culitis on CT scan in the emergency room. The patient was started on IV fluids and antibiotics. Th e patient was evaluated by Dr. Gibson in infectious disease consultation, and the patient was given ceftriaxone and metronidazole for diverticulitis and was started on vancomycin and then switch to li nezolid when the patient was found to have vancomycin-resistant Enterococcus in urine. The patient was also evaluated by Dr. Wilkinson in pulmonology consultation. The patient has a tracheostomy and w as doing well on T-piece, continued on breathing treatment. The patient was also evaluated by Dr. Suni fulton in orthopedic surgery consultation. The patient had overall good alignment of the fracture and r eposition. Fixation device and was in good position, and the patient was cleared for weightbearing exercises with physical therapy. The patient's condition overall improved. The patient's diarrhea resolved. The patient's abdominal pain was well controlled, and the patient was started on G-tube f eeding and was able to tolerate it well. The patient's overall condition improved, and the patient was discharged to [facility]. CONDITION ON DISCHARGE: Hemodynamically stable. ACTIVITIES: As patient tolerates. DISCHARGE DIET: Continue G-tube feeding at the current rate. MEDICATIONS ON DISCHARGE: 1. Linezolid. 2. Lasix. 3. Nystatin. 4. Diflucan. 5. Flagyl. 6. Ceftriaxone. 7. DuoNeb. 8. Pepcid. 9. Tylenol p.r.n. 10. Morphine p.r.n. Interdisciplinary plan of care was established for this patient. Plan of care was discussed with Dr Georgette Bennett. Dictated By: IGNACIO ARROYO [employer] for GUERO BENNETT MD SR/NTS Conf#: [id number] DID#: [id number]
== END 2017-02-03 21:40 | DRG 690 ==
LOC: E/R 16:16 → TEL 18:29 → ICU 01-30 03:30 → TEL 01-30 10:25
PROVIDERS: ADMIT Internal Medicine; ATTEND Internal Medicine
DX: N39.0 Urinary tract infection, site not specified (principal); B37.0 Candidal stomatitis; Z93.0 Tracheostomy status; I11.0 Hypertensive heart disease with heart failure; I50.32 Chronic diastolic (congestive) heart failure; I48.2 Chronic atrial fibrillation; K57.32 Diverticulitis of large intestine without perforation or abscess without bleeding; R13.10 Dysphagia, unspecified; B95.2 Enterococcus as the cause of diseases classified elsewhere; Z16.21 Resistance to vancomycin; E78.5 Hyperlipidemia, unspecified; D63.8 Anemia in other chronic diseases classified elsewhere; E11.9 Type 2 diabetes mellitus without complications; J44.9 Chronic obstructive pulmonary disease, unspecified; Z96.643 Presence of artificial hip joint, bilateral; Z79.01 Long term (current) use of anticoagulants; Z79.4 Long term (current) use of insulin; Z98.1 Arthrodesis status; Z93.1 Gastrostomy status; Z86.718 Personal history of other venous thrombosis and embolism
CPT/HCPCS: 36415; 71010; 73560; 74176; 80048; 80053; 81001; 81003; 83690; 84484; 85025; 87040; 87081; 87086; 93005; 94640; 94664; 96374; 96375; 97110; 97163; 97530; J0696; J1650; J1940; J2270; J2405; J3370; J7030; J7050; P9612